=== PATIENT | female | born 1955 | race Caucasian/White ===

== ENCOUNTER 2020-04-12 12:32 | Inpatient (IN) | payer MEDICARE, MEDICAID ==
[~2020-04-12] VITALS: Ht 167.6 cm; Wt 94.0 kg
[2020-04-12] MEDS ORDERED: NS 1,000 ML IV SCH (13:00)
[2020-04-12] MEDS ORDERED: MORPHINE 2 MG/ML 1ML VIAL (J2270) IV PRN ×2 (13:00→21:55)
[2020-04-12] MEDS ORDERED: ONDANSETRON 4MG/2ML VIAL IV ONE (13:00)
[2020-04-12] MEDS ORDERED: ISOVUE-370 76% 100ML VIAL As Ordered ONE (13:28)
[2020-04-12 13:34] LABS: BASO % 0.3 % (0.0-1.0); HEMATOCRIT 48.3 % (36.0-47.0); HEMOGLOBIN 16.6 g/dl (12.0-15.5); LYMPH # 0.8 10^3/uL (1.5-5.0); LYMPH % 6.3 % (24.0-44.0); MEAN CORPUSCULAR HGB CONC 34.4 g/dl (32.0-36.5); MEAN CORPUSCULAR VOLUME 90.3 fl (80.0-96.0); MONO # 0.5 10^3/uL (0.0-0.8); MONO % 4.2 % (2.0-8.0); NEUTROPHILS # 10.6 10^3/uL (1.5-8.5); NEUTROPHILS % 88.8 % (36.0-66.0); PLATELET COUNT, AUTOMATED 231 10^3/uL (150-450); RED BLOOD COUNT 5.35 10^6/uL (4.00-5.40)
[2020-04-12 14:05] LABS: ALBUMIN 4.4 GM/DL (3.2-5.2); BILIRUBIN,DIRECT 0.3 MG/DL (0.0-0.2); BILIRUBIN,TOTAL 0.8 MG/DL (0.2-1.0)
--- NOTE | 2020-04-12 14:14 | REP ---
INDICATION: abd pain vomiting. COMPARISON: None TECHNIQUE: Axial contrast-enhanced images from the lung bases to the pubic symphysis using 100 cc Isovue 370 intravenous contrast material. . This CT examination was performed using the following dose reduction techniques: Automated exposure control, adjustment of mA and/or kv according to the patient's size, and the use of iterative reconstruction technique. FINDINGS: There is evidence for diffuse dilated fluid-filled small bowel throughout the abdomen and pelvis without collapsed loops to definitively identified obstruction. The colon also appears to be moderately dilated and there is suggestions for pneumatosis coli involving the cecum and ascending colon to the level of the hepatic flexure. A small amount of free fluid is identified within the pelvis. There is no evidence for free air. There is no evidence for portal venous gas. Diffuse colonic diverticulosis noted without acute diverticulitis. Mild hepatosteatosis without focal hepatic lesion. Spleen, pancreas, gallbladder, bilateral adrenal glands and kidneys are normal. Pelvis demonstrates heterogeneous myomatous changes to the uterus. Abdominal aorta and vasculature without aneurysm or dissection. No adenopathy. Skeletal structures demonstrate degenerative changes. Lung bases demonstrate right basilar atelectasis. IMPRESSION: 1. Findings involving the small and large bowel as described above concerning. Colitis including ischemic colitis involving the ascending colon cannot definitively be excluded. Consultation and close clinical observation is required. No definitive bowel obstruction is appreciated and there is no evidence for free air to suggest perforation. <Electronically signed by Hernando Seaman > 04/12/20 [id number]
[2020-04-12] MEDS ORDERED: METOCLOPRAMIDE INJ 10MG/2ML VIAL (J2765 PER 1) IV ONE (14:50)
[2020-04-12] MEDS ORDERED: COLA100C5 PO (15:21)
[2020-04-12] MEDS ORDERED: PIPERACILLIN/TAZOBACTAM SOD 3.375 GM in D5W MINI-BAG PLUS 50 ML IV ONE (16:05)
[2020-04-12] MEDS ORDERED: LIDOCAINE 1% SDV 30ML VIAL As Ordered ONE (16:32)
[2020-04-12] MEDS ORDERED: BUPIVACAINE HCL 0.25% 30ML VIAL As Ordered ONE (16:32)
[2020-04-12] MEDS ORDERED: BUPIVACAINE HCL 0.25% 10ML VIAL As Ordered ONE (16:32)
[2020-04-12] MEDS ORDERED: BUPIVACAINE LIPOSOME/PF 1.3% 20ML VIAL (13.3MG/ML)(EXPAREL)(C9290 PER1MG) As Ordered ONE (16:33)
[2020-04-12] MEDS ORDERED: dexameTHASONE 4 MG/ML 1ML VIAL (J1100 PER 1MG) As Ordered ONE ×2 (16:36→20:46)
[2020-04-12] MEDS ORDERED: ONDANSETRON 4MG/2ML VIAL As Ordered ONE ×2 (16:36→20:47)
[2020-04-12] MEDS ORDERED: ROCURONIUM BROMIDE 50 MG/5 ML VIAL As Ordered ONE ×2 (16:36→18:55)
[2020-04-12] MEDS ORDERED: ACETAMINOPHEN 1000MG 100ML IV BTL (OFIRMEV) (J0131 PER 10MG) As Ordered ONE (16:36)
[2020-04-12] MEDS ORDERED: HYDROmorphone HCL 2 MG/ML 1ML VIAL (J1170) As Ordered ONE (16:36)
[2020-04-12] MEDS ORDERED: SUGAMMADEX SODIUM 500 MG/5 ML VIAL (BRIDION) As Ordered ONE (16:36)
[2020-04-12] MEDS ORDERED: propofoL 200 MG/20 ML VIAL As Ordered ONE (16:36)
[2020-04-12] MEDS ORDERED: SUCCINYLCHOLINE 100 MG/5 ML SYRINGE (J0330) As Ordered ONE (16:36)
[2020-04-12] MEDS ORDERED: LIDOCAINE 2% 100MG/5ML SDV (FOR ANES.) As Ordered ONE (16:36)
[2020-04-12] MEDS ORDERED: fentaNYL 100 MCG/2 ML INJECTION (J3010) As Ordered ONE ×3 (16:37→21:50)
[2020-04-12] MEDS ORDERED: MIDAZOLAM INJ 2MG/2ML VIAL (J2250 PER 1MG) As Ordered ONE (16:37)
[2020-04-12] MEDS ORDERED: PHENYLEPHRINE 10MG/ML 1ML VIAL (J2370 PER 1) As Ordered ONE (16:57)
[2020-04-12] MEDS ORDERED: LABETALOL 100MG/20ML VIAL As Ordered ONE (19:05)
--- NOTE | 2020-04-12 20:12 | ECGEPIP ---
[facility] - ED Test Date: 2020-04-12 Pat Name: PRACHI LANE Department: Room: - Gender: Female Car Chaser: COLUMBA : 1955 Requested By: Vernell Fan Order Number: [id number] Reading MD: Vernell Fan Measurements Intervals Sharples Rate: 107 P: 33 CT: 146 QRS: -6 QRSD: 72 T: 45 QT: 340 QTc: 453 Interpretive Statements Sinus tachycardia with premature atrial complexes Minimal voltage criteria for LVH, may be normal variant ( R in aVL ) Cannot rule out Anterior infarct , age undetermined No prior Electronically Signed on 04-12-2020 20:12:57 EST by Vernell Fan
[2020-04-12] MEDS ORDERED: KETOROLAC 60MG 2ML VIAL As Ordered ONE (20:47)
[2020-04-12] MEDS ORDERED: HYDROMORPHONE HCL 0.5 MG/ 0.5 ML SYRINGE (J1170 PER 1) IV PRN (21:30)
[2020-04-12] MEDS ORDERED: LR 1,000 ML IV SCH (21:30)
[2020-04-12] MEDS ORDERED: KETOROLAC 30 MG/ML 1ML VIAL IV PRN (21:30)
[2020-04-12] MEDS ORDERED: oxyCODONE 5MG TAB PO PRN (21:30)
[2020-04-12] MEDS ORDERED: ONDANSETRON 4MG/2ML VIAL IV PRN (21:30)
[2020-04-12] MEDS: fentaNYL 100 MCG/2 ML INJECTION (J3010) IV PRN ×4 (21:53→22:38)
[2020-04-12 23:04] VITALS: BP 130/67
[2020-04-12] MEDS: LR 1,000 ML IV SCH (23:16)
[2020-04-12 23:37] VITALS: BP 129/79
[2020-04-12] MEDS: PIPERACILLIN/TAZOBACTAM SOD 3.375 GM in D5W MINI-BAG PLUS 50 ML IV SCH (23:55)
[2020-04-13] VITALS (7 sets, daily range): BP systolic 114–132; BP diastolic 71–77
[2020-04-13] MEDS: KETOROLAC 30 MG/ML 1ML VIAL IV SCH ×4 (03:04→22:02)
[2020-04-13] MEDS: LR 1,000 ML IV SCH ×3 (04:15→17:11)
[2020-04-13] MEDS: PIPERACILLIN/TAZOBACTAM SOD 3.375 GM in D5W MINI-BAG PLUS 50 ML IV SCH ×4 (05:33→22:02)
[2020-04-13 06:16] LABS: HEMATOCRIT 39.9 % (36.0-47.0); MEAN CORPUSCULAR HEMOGLOBIN 30.5 pg (27.0-33.0); MEAN CORPUSCULAR HGB CONC 33.6 g/dl (32.0-36.5); MEAN CORPUSCULAR VOLUME 90.9 fl (80.0-96.0); PLATELET COUNT, AUTOMATED 172 10^3/uL (150-450); RED BLOOD COUNT 4.39 10^6/uL (4.00-5.40); WHITE BLOOD COUNT 7.7 10^3/uL (4.0-10.0)
[2020-04-13 06:17] LABS: HEMOGLOBIN 13.4 g/dl (12.0-15.5)
[2020-04-13 06:46] LABS: ALBUMIN 2.8 GM/DL (3.2-5.2); ALT/SGPT 27 U/L (12-78); BLOOD UREA NITROGEN 24 MG/DL (7-18); CALCIUM LEVEL 8.5 MG/DL (8.8-10.2); CARBON DIOXIDE LEVEL 29 MEQ/L (21-32); CHLORIDE LEVEL 106 MEQ/L (98-107); CREATININE FOR GFR 0.87 MG/DL (0.55-1.30); GLOMERULAR FILTRATION RATE > 60.0 (>45); GLUCOSE, FASTING 170 MG/DL (70-100); POTASSIUM SERUM 4.1 MEQ/L (3.5-5.1); SODIUM LEVEL 141 MEQ/L (136-145); TOTAL PROTEIN 5.5 GM/DL (6.4-8.2)
[2020-04-13 07:28] LABS: ATYPICAL LYMPH 3 % (0-5); LYMPHOCYTES 5 % (16-44); MONOCYTES 9 % (0-5); NEUTROPHILS 57 % (28-66)
[2020-04-13 07:29] LABS: PLATELET ESTIMATE NORMAL (NORMAL)
--- NOTE | 2020-04-13 09:54 | HPEPDOC ---
General Surgery H&P Date of Admission Apr 12, 2020 Attending Physician: KEISHA MCCLELLAND MD History and Physical CHIEF COMPLAINT: abdominal distention, obstipation HISTORY OF PRESENT ILLNESS: Patient is a 64-year-old female with long-standing history of constipation who for the past week has not been able to have any bowel movements or have any flatus with increasing abdominal distention. She reports no bowel movement since about 4 days ago. She initially thought she was constipated so she's been taking stool softeners without any relief of the discomfort. She has increasing distention. She complains of right lower quadrant and right flank discomfort as well as nausea and couple episodes of vomiting. She is able to tolerate a small amount of liquids but nothing more than that. She denies any associated fevers or chills. She denies any prior episodes of similar symptoms. No prior colonoscopies. She denies any personal or family history for GI malignancy, colorectal malignancy, inflammatory bowel disease. She denies any sick contacts. With increasing abdominal distention she continues to be uncomfortable and that she went to the emergency room. ALLERGIES: Please see below. HOME MEDICATIONS: Please see below. PAST MEDICAL HISTORY: Patient denies any chronic medical problems but she has not seen a doctor in 30 years. She is not taking any chronic medications but she does take stool softeners occasionally with her constipation PAST SURGICAL HISTORY: 1. section 3. 2. Tonsillectomy. PERSONAL/SOCIAL HISTORY: Denies smoking, alcohol use, or recreational drug use. REVIEW OF SYSTEMS: GENERAL: Denies any abnormal weight loss or weight gain. Symptoms are about 5 days old. HEENT: Denies problems with vision or hearing denies changes in her voice. NECK: Denies any neck pain. CARDIOVASCULAR: Denies chest pain and palpitations. MUSCULOSKELETAL: Denies arthralgias, back pain and thrombophlebitis. SKIN: Denies rash. NEUROLOGIC: Denies headache, stroke and transient ischemic attack. PSYCHIATRIC: Denies anxiety and depression. ENDOCRINE: Denies thyroid disease. HEMATOLOGY/ONCOLOGY: Denies any bleeding or clotting disorder. HEART: Denies any chest pains, palpitations, paroxysmal dyspnea, orthopnea. PULMONARY: Denies chronic cough, dyspnea and wheezing. GASTROINTESTINAL: See HPI. No prior colonoscopy. GENITOURINARY: Denies dysuria, frequency, hematuria and nocturia. ENDOCRINE: Denies polydipsia, polyphagia, polyuria, heat or cold intolerance. INFECTIOUS: Denies any recent upper respiratory tract infection, UTI, need for use of antibiotics. NUTRITION: Reports poor appetite due to the abdominal distention. PHYSICAL EXAMINATION: VITAL SIGNS: Please see below. GENERAL APPEARANCE: Patient seen sitting up on the bed, mildly uncomfortable due to abdominal distention but in no acute distress. Awake, alert, oriented. HEENT: Normocephalic, atraumatic. [place] palpebral conjunctivae. Anicteric sclerae. Lips mildly dry. CHEST: No chest wall abnormalities. Normal respiratory motion/effort. NECK: Supple. No thyromegaly. No lymphadenopathies. LUNGS: Lung sounds are clear to auscultation bilaterally. No wheezing appreciated. HEART: No chest wall abnormalities. Heart rate and rhythm are regular with no murmurs. ABDOMEN: She has obese abdomen, moderately rounded, tensely distended and 90 tympanitic to percussion. Abdomen is quiet. No gross tenderness but patient reports discomfort with palpation especially in the right lower quadrant area. Palpation over right lower quadrant area was making her nauseous. She has a lower midline vertical incision as well as a Pfannenstiel incision. No umbilical or incisional hernia appreciated. No rebound tenderness or guarding. SKIN: Warm and dry. EXTREMITIES: No significant extremity edema. NEUROLOGICAL: She is awake, alert and oriented. ANCILLARIES: . LABORATORY DATA: Please see below. MICROBIOLOGY: Please see below. IMAGING: CT of the abdomen and pelvis with IV contrast shows diffusely dilated fluid- filled small bowel throughout the abdomen and pelvis without collapsed loops.: Is moderately dilated and suggestions for pneumatosis coli involving the cecum and ascending colon to the level of the hepatic flexure. No portal venous gas. Diffuse colonic diverticulosis without diverticulitis. IMPRESSION AND PLAN: Obstipation pneumatosis coli of the right colon/ischemic right colon Patient's abdomen is tensely distended and quiet with discomfort on palpation especially in the right side. No signs of peritonitis as of yet. This does not seem to have any severe systemic inflammatory response to this. She has some mild leukocytosis but otherwise no fevers, chills, tachycardia. I place a nasogastric tube with immediate drainage of brownish foul-smelling fluid. The appearance of pneumatosis on the right colon is very concerning to me and with her parents I think she does need to go to the operating room for diagnostic laparoscopy. Unclear as to what the etiology of the obstipation is. Does not look to be an obstructive process though certainly it is a possibility. He has had no prior colonoscopies. I discussed with her the options and includes careful observation watchful waiting with abdominal decompression versus diagnostic laparoscopy. I'm concerned that if she does show signs of peritonitis that she will do worse and may have murtaza perforation at that time. We also discussed the possibility of needing a temporary diversion or a colostomy this all depends on the clinical picture, how she is stooling during the surgery and how the bowels look. Certainly the chances of a colostomy/so with a right colectomy done with left-sided colon resection. Consent was obtained from patient. I also discussed findings with her daughter on the phone. We will proceed with diagnostic laparoscopy. If the robot is available would prefer to use the [employer] robot for possibility of performing intracorporeal anastomosis if she does need a right colectomy. Vital Signs Vital Signs Date Time Temp Pulse Resp B/P (MAP) Pulse Ox O2 Delivery O2 Flow Rate FiO2 04/13/20 06:30 3.0 04/13/20 05:58 97.6 87 20 125/76 (92) 93 Nasal Cannula I&Os I&O- Last 24 Hours up to 6 AM 04/13/20 06:00 Intake Total 3850 ml Output Total 835 ml Balance 3015 ml Laboratory Data Labs 24H Laboratory Tests 2 04/12/20 13:08: Immature Granulocyte % (Auto) 0.4, Neutrophils (%) (Auto) 88.8H, Lymphocytes (%) (Auto) 6.3L, Monocytes (%) (Auto) 4.2, Eosinophils (%) (Auto) 0.0, Basophils (%) (Auto) 0.3, Neutrophils # (Auto) 10.6H, Lymphocytes # (Auto) 0.8L, Monocytes # (Auto) 0.5, Eosinophils # (Auto) 0.0, Basophils # (Auto) 0.0, Nucleated Red Blood Cells % (auto) 0.0, Total Bilirubin 0.8, Direct Bilirubin 0.3H, Aspartate Amino Transf (AST/SGOT) 17, Alanine Aminotransferase (ALT/SGPT) 21, Alkaline Phosphatase 88, Total Protein 8.0, Albumin 4.4, Albumin/Globulin Ratio 1.2, Lipase 113 04/12/20 13:20: POC Glucose (Misc Panel) 142H, POC Sodium (Misc Panel) 138, POC Potassium (Misc Panel) 4.1, POC Chloride (Misc Panel) 100, POC Total CO2 (Misc Panel) 27.0, POC Blood Urea Nitrogen (Misc Panel 27H, POC Ionized Calcium (Misc Panel) 4.9, POC Creatinine (Misc Panel) 1.1, POC Hematocrit (Misc Panel) 49.0 04/12/20 14:25: Lactic Acid Level 1.7 04/12/20 15:49: Coronavirus (COVID-19)(PCR) NEGATIVE 04/13/20 05:48: Neutrophils (%) (Auto) , Nucleated Red Blood Cells % (auto) 0.0, Neutrophils 57, Band Neutrophils 26H, Lymphocytes (Manual) 5L, Monocytes (Manual) 9H, Atypical Lymphocytes 3, Platelet Estimate NORMAL, Anion Gap 6L, Glomerular Filtration Rate > 60.0, Calcium Level 8.5L, Total Bilirubin 1.0, Aspartate Amino Transf (AST/SGOT) 22, Alanine Aminotransferase (ALT/SGPT) 27, Alkaline Phosphatase 56, Total Protein 5.5#L, Albumin 2.8#L, Albumin/Globulin Ratio 1.0L CBC/BMP Laboratory Tests 04/12/20 13:08 04/13/20 05:48 Home Medications Scheduled Amoxicillin/Potassium Clav (Augmentin 875-125 Tablet) 1 Each Tablet, 1 TAB PO BI D Diphenoxylate HCl/Atropine (Diphenoxylate-Atrop 2.5-0.025) 1 Each Tablet, 1 EA PO BID Metronidazole (Metronidazole) 500 Mg Tablet, 500 MG PO TID Scheduled PRN Oxycodone/Acetaminophen (Oxycodone-Acetaminophen 5-325) 1 Each Tablet, 1 TAB PO TIDP PRN for MILD/MODERATE PAIN (PS 1-7) Allergies Coded Allergies: ENVIROMENTAL (Verified Allergy, Unknown, 04/12/20) A-FIB/CHADSVASC A-FIB History Current/History of A-Fib/PAF?: No Current PO Anticoag Therapy: KEISHA Canseco MD Apr 13, 2020 09:54
--- NOTE | 2020-04-13 09:56 | ROOPDOC ---
[facility] Report Of Operation Report of Operation DATE OF PROCEDURE: 04/12/20 PREPROCEDURE DIAGNOSES: Ischemic right colon. POSTPROCEDURE DIAGNOSES: Colonic distention, partial wall thickness perforation, no gross perforation, right colon ischemia. PROCEDURE: Diagnostic Laparoscopy converted to Open laparotomy, right colectomy and end ileostomy. SURGEON: Chalino Olson MD SNUFF BOX FINISHER: ANESTHESIA: General Endotracheal anesthesia. ESTIMATED BLOOD LOSS: Approximately 100 mL. COMPLICATIONS: none, extubated. REMARKS: Patient is a 64-year-old female presenting with about 5 day history of obstipation, markedly abdominal distention and suspicion for possible ischemic right colon on CT with presence of pneumatosis coli on the cecum and ascending colon. No gross perforation. Patient is being brought to the operating room for diagnostic laparoscopy, most likely needing bowel resection. PROCEDURE NOTE: Markedly distended and mildly ischemic appearing right colon up to the proximal transverse colon but no real transition point, no gross evidence of mechanical type of obstruction. The rest of the colon also looks distended but healthier appearing. No palpable masses. No hard stools. The small bowel was also distended but less in caliber. Small amount of serous ascites is noted. DESCRIPTION OF PROCEDURE: Patient was given a dose of Zosyn 3.375 g IV in the emergency room. She was likewise given a liter of normal saline as well as and started on brisk IV fluid hydration. Once the operating room is available, she was brought to the operating room, placed supine on the table. TEDs and bilateral sequential compre ssion devices were placed on both lower extremities were DVT prophylaxis. Gen. endotracheal anesthesia started. Her pressure dropped a little and she was placed on a small amount of Senthil-Synephrine for support. A Alves catheter was placed showing moderately concentrated dark-colored urine. Her abdomen was then widely prepped and draped in the usual sterile fashion.We paused for a surgical timeout using both pre-incision safety checklist to verify correct patient, procedure site and additional clinical information prior to beginning the procedure I marked possible colostomy/ileostomy placement on both sides at the paramedian area. I entered the abdomen through the left upper quadrant area. A Veress needle was inserted with a controlled fashion. CO2 insufflation was then started to pressure 15 mmHg. Initial pressures were already high due to the abdominal distention so insufflating to 15 mmHg did not accommodate a lot of pneumoperitoneum. Under direct vision a 5 mm optical port was placed under direct vision of a laparoscope. The area underneath the insertion site was inspected for injuryfound. She was placed on the 15 Trendelenburg position tilted towards the left side. On initial surveillance of the abdomen, markedly distended loops of small bowel and especially the right side of the colon is appreciated with the cecum and ascending colon markedly dilated and mildly ischemic in appearance though not grossly full thickness ischemic or purplish in appearance. There seems to be a transition where the collar starts to pink up a little past the hepatic flexure below the colon still looks distended at this area though less so. The small bow el also appears distended but otherwise appears healthy in appearance. There is a small amount of serous ascites on top of the liver. No evidence for gross perforation. No clearly ischemic portions of the colon and small bowel that I could see. I used ICG and confirms a sluggish opacification of the right colon as compared to the transverse colon and small bowel. I established my ports mainly in the left side. Therefore 8 mm robotic trochars were placed in a slight oblique direction ending up at the just above the suprapubic area. A 12 mm port was placed 10 cm below my initial port of entry. The initial 5 mm port was exchanged for an 8 mm ports under direct vision. A total of 4 ports were placed. The da [employer] of what was then positioned in place over the patient's right side and the trocar stuck to the robot. Instruments were placed and guided to the midline. I then unscrubbed and to control of the robot camera and instruments as the surgeon's console. To gain some space on a placed a pursestring at the medial tenia coli over the top portion of the cecum using a 3-0 silk. The colotomy was then created and I inserted a robotic suction to suction off the contents of the right colon. Brownish nonbloody stool was suctioned off. A total of 1200 mL's of stool was suctioned off. Even with this was only partial decompression of the colon. The colotomy was then cinched close with the pursestring suture. I then performed lateral dissection of the colon to free this up from its lateral attachments to the abdominal wall. There was a lot of difficulty visualizing the hepatic flexure due to the depth where the colon traverses as well as the distention of the small bowel and colon. The omental attachments at the mid transverse colon was freed up the gastrocolic ligament was divided using the synchronous seal device. I was trying to get to the hepatic flexure and bring it down but continued to have difficulty visualizing the course of the colon as it dives down into the right gutter. I've also difficulty visualizing the medial portion of the mesentery due to the distention of the small bowel. I tried to go back between the lateral dissection of the cecum and ascending colon as well as the super mesocolic dissection from the middle of the transverse colon towards the hepatic flexure to try to further free this up and left colon anteriorly but after a couple hours without any good improvement in visualization, I decided that I need to proceed in an open fashion. The [employer] robot tower was undocked and I scrubbed back in. All ports were removed. A vertical midline incision was created midway between the umbilicus and symphysis pubis and up towards midway between the umbilicus and xiphisternum. She has a very thick pannus especially in the lower abdomen. The incision was deepened through to the subcutaneous pannus and the midline of the anterior fascia was located. The abdomen was entered and the fascial incision was enlarged to the length of the skin and subcutaneous tissue incision. This was partially enlarged inferiorly and superiorly for more adequate visualization. The [employer] self-retaining retractor was set up I continued the lateral dissection of the cecum and ascending colon mostly with finger dissection which easily broke apart the flimsy attachments to the retroperito neum. This allowed me to further visualize the hepatic flexure and take it down from its attachments to the liver/abdominal wall/retroperitoneum. The duodenum was identified and dissected off the hepatic flexure. I have already noticed an area of demarcation where there was some slight darkening of the colon though this is not fully or push or ischemic. This seems to be probably at the right this colic artery distribution with the distribution of middle colic arteries allowing for good perfusion of the area. I chose my distal site of resection to healthy portion of the transverse colon. The mesenteric window was created with a LigaSure device and the 75 mm stapler with a blue load was used to transect the colon. The retroperitoneal attachments of the mesentery was freed up and the mesentery was divided with the LigaSure device making sure the duodenum is of the mesentery of the right colon. I then proceeded freeing up the left over retroperitoneal attachments of the ascending colon. I then came down towards the terminal ileum chose an area of the small bowel that appears healthy and likewise created a mesenteric window and divided this with the same 75 mm stapler with a blue load. The feeding vessels to the small bowel was divided with LigaSure and met my superior dissection following the course of the ileocolic artery. The ileocolic vessels were burned both proximally and distally to divide the ileocolic vessels with the LigaSure device. Leftover attachments of the right colon was easily freed up and the right colon was passed off as a specimen. I then examined the rest of the abdominal cavity. The stomach was inspected. This was dilated but otherwise healthy in appearance. The nasogastric tube was positioned to the mid body. Small bowel was run from the ligament of Treitz to the distal ileum. There were no obstructive points. The mesentery is mildly swollen from the ongoing process. The remnants of the transverse colon was visualized as well as the course of the splenic flexure and left colon and rectum and all appears healthy, pink in appearance though the whole of the colon appears twice the size was normal and is fluid-filled. I did not feel any masses. The uterus and ovaries were consistent with her age and no masses were seen. The liver was palpated and a smooth, fatty replaced. Gallbladder is moderately distended, mildly thick-walled. The 2 ends of the small bowel and transverse colon was aligned. There was more than 6 times the difference of the lumen of the small bowel to the transverse colon. Patient also has a small amount of Senthil-Synephrine at this time. It is also not obvious what was the cause of the obstipation, ischemic right colon, thus I decided to forego with anastomosis at this time. I chose the placement of the he ileostomy on the patient's right side. A small disc of skin and subcutaneous tissue was removed down to the anterior fascia. A vertical incision was created, the rectus muscle split to expose the posterior sheath and the posterior sheath was likewise opened up vertically and dilated to accommodate 2 fingers. The stump of the small bowel/ileum was threaded through the ileostomy site and held with a [place]. There was some mild tension due to the thickness of the mesentery. I partially enlarged the ileostomy fascial opening to deal with the tension and then pullout more of the ileostomy. The abdomen was irrigated with about 3 L of warm saline. I threaded a 19 Ranjan drain through the 12 mm port site and left this in the pelvis. The bowels were placed in their anatomic position and the omentum draped on top of the small bowel. The peritoneum and posterior sheath was closed with a running suture of #1 Vicryl. The anterior sheath was closed recreating the linea alba with a double looped #1 PDS. The subcutaneous tissue was irrigated. The skin loosely closed with shayy and Telfa meena placed in-between the shayy. The incision was then covered with a dry towel Then worked on maturing the ileostomy in a Shari fashion. The ileostomy where the mesentery is located is partially flat to accommodate the bulk of the mesentery. Otherwise the ileostomy mucosa appears pink and healthy. The ileostomy appliance was then trimmed to size and placed. Bulky gauze dressings placed on top of the incision. The drain was secured to the skin with 2-0 silk. Towards the end of the case, patient was awakened. We were able to wean off the Senthil-Synephrine. She was promptly awakened, extubated and brought to recovery room in stable condition. CHALINO OLSON MD Apr 13, 2020 09:56
--- NOTE | 2020-04-13 09:57 | IPNPDOC ---
Text Note Date of Service The patient was seen on 04/13/20. NOTE Patient was brought to the operating room for ischemic right colon last night. She has been stable postoperatively but urine output is on the low side. Urine appears still concentrated. She reports she is much comfortable today. No ileostomy output yet Vital signs stable, non-tachycardic Urine output 175 mL's overnight NG tube 1.5 mL TADEO drain 30 mL Examination patient's laying flat in bed looks a lot more comfortable she was last night Awake alert and oriented Skin is warm and dry Lungs are clear to auscultation bilaterally no wheezing Regular heart rate and rhythm Abdomen is round still looks moderately distended with lot softer than it was on presentation. Her dressings are clean dry and intact. Her TADEO drain is slight pink serosanguineous. Her ileostomy is is moderately swollen, purplish, no output yet POD1 Exploratory laparotomy, Right Colectomy, End Ileostomy for ischemic right colon Still on the dry side. We'll continue IV fluids at 150 mL an hour. She is instructed to get out of bed to chair and ambulate today when stable. We will keep the Alves catheter in today hopefully this continue with by tomorrow. Continue on IV antibiotics. Keep the nasogastric tube to suction. Await function of the ostomy. Still remains unclear to me what the precipitating factor is for the ischemic right colon. She tells me that she has been perennially constipated and has been taking stool softeners there were since early adulthood. She usually just posterior bowels once every 3 days with hard bowel movements. No prior colonoscopies. No bleeding with bowel movements or nor prior episodes of bowel obstructions. We'll eventually need to do a colonoscopy at some point. Ostomy teaching DVT prophylaxis with Lovenox. VS,Fishbone, I+O VS, Fishbone, I+O Laboratory Tests 04/12/20 13:08 04/13/20 05:48 Vital Signs Date Time Temp Pulse Resp B/P (MAP) Pulse Ox O2 Delivery O2 Flow Rate FiO2 04/13/20 06:30 3.0 04/13/20 05:58 97.6 87 20 125/76 (92) 93 Nasal Cannula I&O- Last 24 Hours up to 6 AM 04/13/20 06:00 Intake Total 3850 ml Output Total 835 ml Balance 3015 ml KEISHA MCCLELLAND MD Apr 13, 2020 09:57
[2020-04-13] MEDS: ENOXAPARIN 40MG/0.4ML SYRINGE (J1650 PER 10MG) SC SCH (10:17)
[2020-04-13] MEDS: PANTOPRAZOLE 40MG VIAL (C9113 PER 1) IV SCH (10:19)
[2020-04-14] MEDS: LR 1,000 ML IV SCH ×2 (01:00→07:41)
[2020-04-14 02:00] VITALS: BP 126/74
[2020-04-14] MEDS: KETOROLAC 30 MG/ML 1ML VIAL IV SCH ×4 (04:47→20:06)
[2020-04-14] MEDS: PIPERACILLIN/TAZOBACTAM SOD 3.375 GM in D5W MINI-BAG PLUS 50 ML IV SCH ×4 (04:48→23:08)
[2020-04-14 06:00] VITALS: BP 148/86
[2020-04-14 06:23] LABS: BASO % 0.4 % (0.0-1.0); EOS % 0.3 % (0.0-3.0); HEMATOCRIT 39.4 % (36.0-47.0); HEMOGLOBIN 13.2 g/dl (12.0-15.5); LYMPH # 0.7 10^3/uL (1.5-5.0); LYMPH % 9.6 % (24.0-44.0); MEAN CORPUSCULAR HGB CONC 33.5 g/dl (32.0-36.5); MEAN CORPUSCULAR VOLUME 92.5 fl (80.0-96.0); MONO # 0.6 10^3/uL (0.0-0.8); MONO % 8.7 % (2.0-8.0); NEUTROPHILS # 5.5 10^3/uL (1.5-8.5); NEUTROPHILS % 80.7 % (36.0-66.0); PLATELET COUNT, AUTOMATED 165 10^3/uL (150-450); RED BLOOD COUNT 4.26 10^6/uL (4.00-5.40); WHITE BLOOD COUNT 6.8 10^3/uL (4.0-10.0)
[2020-04-14 06:47] LABS: ALBUMIN 2.5 GM/DL (3.2-5.2); ALT/SGPT 23 U/L (12-78); BLOOD UREA NITROGEN 30 MG/DL (7-18); CALCIUM LEVEL 8.3 MG/DL (8.8-10.2); CARBON DIOXIDE LEVEL 31 MEQ/L (21-32); CHLORIDE LEVEL 105 MEQ/L (98-107); CREATININE FOR GFR 0.75 MG/DL (0.55-1.30); GLOMERULAR FILTRATION RATE > 60.0 (>45); GLUCOSE, FASTING 126 MG/DL (70-100); SODIUM LEVEL 141 MEQ/L (136-145); TOTAL PROTEIN 5.6 GM/DL (6.4-8.2)
[2020-04-14 10:00] VITALS: BP 134/93
[2020-04-14] MEDS: ENOXAPARIN 40MG/0.4ML SYRINGE (J1650 PER 10MG) SC SCH (10:08)
[2020-04-14] MEDS: PANTOPRAZOLE 40MG VIAL (C9113 PER 1) IV SCH (10:08)
--- NOTE | 2020-04-14 12:32 | IPNPDOC ---
Text Note Date of Service The patient was seen on 04/14/20. NOTE Patient continues to do much better. She tells me she has gotten out of bed, a mbulated. Her nasogastric tube was putting out that much. Her ileostomy is started to put out some output, thin brownish fluid, not bilious yet. He she also reports that she is passing some flatus intermittently. Comfortable. Vital signs stable MAXIMUM TEMPERATURE 98.1 pulse rate in the 90s. Blood pressure 134/93. Pulse oximetry reading 90% 3 L nasal cannula On examination She was asleep when I entered her room wakes up easily looks comfortable Nasal cannula with about 93% on regular breathing, 97% on deep breathing Lungs clear to auscultation bilaterally Regular heart rate and rhythm Abdomen remains rounded still moderately distended but a lot less so than on presentation. Postoperative dressings are clean dry and intact. Her TADEO drain is light pink serosanguineous. Her ileostomy slightly swollen with thin brownish output. Minimally uncomfortable in the palpation no definite area of tenderness No significant extremity edema Urine still somewhat concentrated Labs reviewed Impression and plan Postop day 2 following right colectomy for ischemic right colon, end ileostomy She continues to improve clinically. We will discontinue her nasogastric tube Aman has not put out Much and her ileostomy is starting to work. We will also discontinue the Alves catheter today. She is encouraged to continue to get up and walk. We'll get her an incentive spirometer to help her with deep breathing exercises. She has Lovenox for DVT prophylaxis. She is continued on Zosyn 3.375 g IV every 6 hours. I will switch to IV fluid to maintenance IV. I will allow her some clear liquids. VS,Fishbone, I+O VS, Fishbone, I+O Laboratory Tests 04/14/20 06:01 Vital Signs Date Time Temp Pulse Resp B/P (MAP) Pulse Ox O2 Delivery O2 Flow Rate FiO2 04/14/20 10:00 98.1 95 18 134/93 (107) 90 Nasal Cannula 3.0 I&O- Last 24 Hours up to 6 AM 04/14/20 06:00 Intake Total 0 ml Output Total 1190 ml Balance -1190 ml KEISHA MCCLELLAND MD Apr 14, 2020 12:32
[2020-04-14] MEDS: KCL 20MEQ IN D5/0.45NS 1000ML 1,000 ML IV SCH ×2 (12:38→20:21)
[2020-04-14 14:00] VITALS: BP 126/86
[2020-04-14 18:00] VITALS: BP 125/84
[2020-04-14] MEDS: ONDANSETRON 4MG/2ML VIAL IV PRN (20:05)
[2020-04-14 22:00] VITALS: BP 135/85
[2020-04-15] MEDS: ONDANSETRON 4MG/2ML VIAL IV PRN ×2 (01:43→10:18)
[2020-04-15] MEDS: KETOROLAC 30 MG/ML 1ML VIAL IV SCH ×4 (01:43→20:57)
[2020-04-15 02:00] VITALS: BP 143/92
[2020-04-15] MEDS: PIPERACILLIN/TAZOBACTAM SOD 3.375 GM in D5W MINI-BAG PLUS 50 ML IV SCH ×3 (04:28→18:02)
[2020-04-15 06:00] VITALS: BP 135/89
[2020-04-15 06:26] LABS: HEMATOCRIT 40.3 % (36.0-47.0); HEMOGLOBIN 13.5 g/dl (12.0-15.5); MEAN CORPUSCULAR HEMOGLOBIN 30.7 pg (27.0-33.0); MEAN CORPUSCULAR HGB CONC 33.5 g/dl (32.0-36.5); MEAN CORPUSCULAR VOLUME 91.6 fl (80.0-96.0); PLATELET COUNT, AUTOMATED 174 10^3/uL (150-450); WHITE BLOOD COUNT 4.1 10^3/uL (4.0-10.0)
[2020-04-15 06:47] LABS: ATYPICAL LYMPH 3 % (0-5); LYMPHOCYTES 8 % (16-44); MONOCYTES 1 % (0-5); NEUTROPHILS 83 % (28-66); PLATELET ESTIMATE NORMAL (NORMAL)
[2020-04-15 06:58] LABS: ALBUMIN 2.5 GM/DL (3.2-5.2); BILIRUBIN,TOTAL 0.7 MG/DL (0.2-1.0); CALCIUM LEVEL 8.6 MG/DL (8.8-10.2); CREATININE FOR GFR 0.99 MG/DL (0.55-1.30); GLOMERULAR FILTRATION RATE 59.9 (>45); POTASSIUM SERUM 4.1 MEQ/L (3.5-5.1); TOTAL PROTEIN 5.7 GM/DL (6.4-8.2)
[2020-04-15] MEDS: PANTOPRAZOLE 40MG VIAL (C9113 PER 1) IV SCH (08:04)
[2020-04-15] MEDS: ENOXAPARIN 40MG/0.4ML SYRINGE (J1650 PER 10MG) SC SCH (08:05)
[2020-04-15 10:00] VITALS: BP 135/89
[2020-04-15] MEDS ORDERED: PROMETHAZINE INJ 25 MG/ML VIAL (J2550) IV ONE (12:00)
--- NOTE | 2020-04-15 12:13 | IPNPDOC ---
Text Note Date of Service The patient was seen on 04/15/20. NOTE General Surgery Dr Mcclelland. The patient is a 64-year-old female POD 3 right colectomy for ischemic right colon, and ileostomy as per Dr. Mcclelland. The patient states she has been comfortable. She has gotten out of bed and ambulated around the room, not in the halls yet. Tube was discontinued. She has had some thin brownish fluid in her ileostomy bag. Reports she is passing some flatus. States she is tolerating clear liquids. Afebrile. Heart rate 94, respiratory rate 18, blood pressure 135/89, 92% room air. General. Awake and alert, resting in bed comfortably. No acute distress. MMM Lungs are clear to auscultation S1-S2 regular rate and rhythm Abdomen. Surgical sites clean, dry and intact. Small amount of drainage in TADEO, serosanguineous. Soft and nontender, nondistended. Ileostomy bag with small amount thin brownish fluid, stoma is pink. Extremities well-perfused, no edema. 2440/2375, +65 TADEO drain 400 mL WBC 4.1, hemoglobin 13.5, platelets 174. Total protein 5.7, albumin 2.5 Assessment/plan POD 3 right colectomy for ischemic right colon, and ileostomy. Patient is reviewed and examined as per Dr. Mcclelland this morning. The patient is tolerating clear liquids. Small amount of brownish fluid in ileostomy bag. IV Zosyn. IVF 100cc/hr Continue to encourage ambulation and incentive spirometer. She remains on Lovenox for DVT prophylaxis. Begin ostomy teaching with nursing and planning for supplies for discharge. Continue to monitor. VS,Fishbone, I+O VS, Fishbone, I+O Laboratory Tests 04/15/20 05:46 Vital Signs Date Time Temp Pulse Resp B/P (MAP) Pulse Ox O2 Delivery O2 Flow Rate FiO2 04/15/20 10:00 98.2 94 18 135/89 (104) 92 Room Air 04/14/20 22:00 I&O- Last 24 Hours up to 6 AM 04/15/20 06:00 Intake Total 3590 ml Output Total 2245 ml Balance 1345 ml Attending Note Attending Note Patient continues to do well and she is having function from her ileostomy to this still does not look as a typical sulcus and more of the small bowel getting decompressed with the ileostomy passing dark brownish stool-like material. She is also reporting flatus from the rectum/anus. She's tolerating clear liquids. We will continue antibiotics to cover for at least 7 days. He will start ostomy teaching and have her work with the nurses on how to take the ostomy. She is already starting to ambulate. She remains on Lovenox for DVT prophylaxis. Elizabeth Schneider Apr 15, 2020 12:13 KEISHA MCCLELLAND MD Apr 22, 2020 12:57
[2020-04-15] MEDS ORDERED: METOCLOPRAMIDE INJ 10MG/2ML VIAL (J2765 PER 1) IV ONE (13:35)
[2020-04-15 14:00] VITALS: BP 134/90
[2020-04-15] MEDS: KCL 20MEQ IN D5/0.45NS 1000ML 1,000 ML IV SCH (15:35)
--- NOTE | 2020-04-15 18:36 | REP ---
INDICATION: CHECK NG TUBE PLACEMENT COMPARISON: None. TECHNIQUE: Supine view of the abdomen and pelvis. FINDINGS: Limited evaluation of the mid chest through upper abdomen demonstrates a nasogastric tube just beyond the left hemidiaphragm and consideration should be given for advanced mint to secure the position. Lung bases are clear. Evidence for postsurgical changes involving the abdomen including surgical clips and drainage catheter. IMPRESSION: 1. Nasogastric tube just below the left hemidiaphragm warrants advancement to secure position. <Electronically signed by Hernando Seaman > 04/15/20 [id number]
[2020-04-15 22:00] VITALS: BP 130/87
[2020-04-16] MEDS: PIPERACILLIN/TAZOBACTAM SOD 3.375 GM in D5W MINI-BAG PLUS 50 ML IV SCH ×5 (01:59→23:33)
[2020-04-16] MEDS: KCL 20MEQ IN D5/0.45NS 1000ML 1,000 ML IV SCH ×4 (02:00→23:34)
[2020-04-16] MEDS: ONDANSETRON 4MG/2ML VIAL IV PRN ×2 (02:26→20:37)
[2020-04-16] MEDS: KETOROLAC 30 MG/ML 1ML VIAL IV SCH ×4 (03:32→20:37)
[2020-04-16 05:47] LABS: HEMOGLOBIN 12.5 g/dl (12.0-15.5); MEAN CORPUSCULAR HEMOGLOBIN 30.1 pg (27.0-33.0); MEAN CORPUSCULAR HGB CONC 32.9 g/dl (32.0-36.5); MEAN CORPUSCULAR VOLUME 91.6 fl (80.0-96.0); PLATELET COUNT, AUTOMATED 221 10^3/uL (150-450); RED BLOOD COUNT 4.15 10^6/uL (4.00-5.40); WHITE BLOOD COUNT 3.8 10^3/uL (4.0-10.0)
[2020-04-16 06:00] VITALS: BP 109/77
[2020-04-16 06:19] LABS: ATYPICAL LYMPH 1 % (0-5); EOSINOPHILS 9 % (0-3); LYMPHOCYTES 26 % (16-44); MONOCYTES 4 % (0-5); NEUTROPHILS 60 % (28-66)
[2020-04-16 06:20] LABS: PLATELET ESTIMATE NORMAL (NORMAL)
[2020-04-16 06:22] LABS: ALBUMIN 2.4 GM/DL (3.2-5.2); BILIRUBIN,TOTAL 0.9 MG/DL (0.2-1.0); CALCIUM LEVEL 8.3 MG/DL (8.8-10.2); CREATININE FOR GFR 1.21 MG/DL (0.55-1.30); GLOMERULAR FILTRATION RATE 47.5 (>45); POTASSIUM SERUM 3.9 MEQ/L (3.5-5.1); TOTAL PROTEIN 5.6 GM/DL (6.4-8.2)
[2020-04-16 08:39] VITALS: BP 115/65
[2020-04-16] MEDS: PANTOPRAZOLE 40MG VIAL (C9113 PER 1) IV SCH (09:01)
[2020-04-16] MEDS: ENOXAPARIN 40MG/0.4ML SYRINGE (J1650 PER 10MG) SC SCH (09:01)
--- NOTE | 2020-04-16 12:16 | IPNPDOC ---
Text Note Date of Service The patient was seen on 04/16/20. NOTE General Surgery Dr Olson. The patient is a 64-year-old female POD 3 right colectomy for ischemic right colon, and ileostomy as per Dr. Olson. The patient admits that yesterday she did not really accurately report how she was feeling. She had stated that she was tolerating clear liquids but admits that she had been feeling nauseated throughout the day yesterday with increasing abdominal fullness and then had episode of emesis yesterday afternoon. NG tube was reinserted. Patient is NPO currently and states she is feeling better. She reports no further nausea or vomiting. Abdominal distention is improved this morning. Afebrile. VSS General. Awake and alert, sitting comfortably on the side of the bed. No acute distress. NG tube in place Lungs are clear to auscultation S1-S2 regular rate and rhythm Abdomen. Surgical sites clean, dry and intact. Small amount of drainage in TADEO, serosanguineous. Abdomen is soft and nontender, nondistended. Ileostomy bag with small amount thin brownish fluid, has not had much air in the bag, stoma is pink. Extremities well-perfused, no edema. 1330/2385, -1055 TADEO drain 215 mL NG, none recorded 3/8 WBC 3.8, hemoglobin 12.5, platelets 221. Assessment/plan POD 3 right colectomy for ischemic right colon, and ileostomy. Patient is reviewed and examined as per Dr. Olson this morning. Reassured and encouraged the patient accurately report how she is feeling. Continue with NG tube and NPO for today. Small amount of brownish fluid in ileostomy bag, still not noting much air in the bag. IV Zosyn. IVF 100cc/hr Continue to encourage ambulation and incentive spirometer. She remains on Lovenox for DVT prophylaxis. Begin ostomy teaching with nursing and planning for supplies for discharge. Continue to monitor. VS,Chinbone, I+O VS, Chinbone, I+O Laboratory Tests 04/16/20 05:14 Vital Signs Date Time Temp Pulse Resp B/P (MAP) Pulse Ox O2 Delivery O2 Flow Rate FiO2 04/16/20 10:27 2.0 04/16/20 08:39 95.7 90 17 115/65 (82) 95 Room Air I&O- Last 24 Hours up to 6 AM 04/16/20 06:00 Intake Total 180 ml Output Total 2365 ml Balance -2185 ml Elizabeth Schneider Apr 16, 2020 12:16
[2020-04-16 14:00] VITALS: BP 115/76
[2020-04-16 22:00] VITALS: BP 117/76
[2020-04-17] MEDS: KETOROLAC 30 MG/ML 1ML VIAL IV SCH ×4 (03:07→20:29)
[2020-04-17] MEDS: ONDANSETRON 4MG/2ML VIAL IV PRN (03:07)
[2020-04-17 06:00] VITALS: BP 121/75
[2020-04-17] MEDS: PIPERACILLIN/TAZOBACTAM SOD 3.375 GM in D5W MINI-BAG PLUS 50 ML IV SCH ×4 (06:09→22:53)
[2020-04-17 06:33] LABS: BASO # 0.1 10^3/uL (0.0-0.2); BASO % 1.3 % (0.0-1.0); EOS # 0.2 10^3/uL (0.0-0.5); EOS % 3.6 % (0.0-3.0); HEMATOCRIT 36.5 % (36.0-47.0); HEMOGLOBIN 12.1 g/dl (12.0-15.5); LYMPH # 1.1 10^3/uL (1.5-5.0); LYMPH % 23.8 % (24.0-44.0); MEAN CORPUSCULAR HEMOGLOBIN 30.4 pg (27.0-33.0); MEAN CORPUSCULAR HGB CONC 33.2 g/dl (32.0-36.5); MEAN CORPUSCULAR VOLUME 91.7 fl (80.0-96.0); MONO # 0.7 10^3/uL (0.0-0.8); MONO % 15.1 % (2.0-8.0); NEUTROPHILS # 2.6 10^3/uL (1.5-8.5); NEUTROPHILS % 55.3 % (36.0-66.0); PLATELET COUNT, AUTOMATED 209 10^3/uL (150-450); RED BLOOD COUNT 3.98 10^6/uL (4.00-5.40); WHITE BLOOD COUNT 4.7 10^3/uL (4.0-10.0)
[2020-04-17 07:19] LABS: ALBUMIN 2.3 GM/DL (3.2-5.2); BILIRUBIN,TOTAL 0.3 MG/DL (0.2-1.0); CALCIUM LEVEL 8.4 MG/DL (8.8-10.2); CREATININE FOR GFR 1.09 MG/DL (0.55-1.30); GLOMERULAR FILTRATION RATE 53.6 (>45); POTASSIUM SERUM 3.9 MEQ/L (3.5-5.1); TOTAL PROTEIN 5.5 GM/DL (6.4-8.2)
[2020-04-17 07:48] LABS: C REACTIVE PROTEIN QUANTITATIV 6.9 MG/DL (0.00-0.30)
--- NOTE | 2020-04-17 08:37 | REP ---
INDICATION: postop ileus, bowel obstruction ffup COMPARISON: None. TECHNIQUE: Upright view of the chest with supine and upright views of the abdomen and pelvis. FINDINGS: Frontal upright view of the chest includes nasogastric tube extending just below the left hemidiaphragm. Minimal right basilar atelectasis and small right pleural reaction cannot be excluded. No free air below diaphragm to suspect pneumoperitoneum. Supine upright views of the abdomen demonstrate distended air-filled small bowel with fluid levels suggesting ileus versus obstruction. A drainage catheter and postoperative changes are noted within the abdomen including right-sided ostomy. Skeletal structures are intact. IMPRESSION: 1. Postoperative ileus versus small-bowel obstruction cannot be differentiated based on current examination. Close clinical observation is recommended. <Electronically signed by Hernando Seaman > 04/17/20 0865
[2020-04-17] MEDS: ENOXAPARIN 40MG/0.4ML SYRINGE (J1650 PER 10MG) SC SCH (09:31)
[2020-04-17] MEDS: PANTOPRAZOLE 40MG VIAL (C9113 PER 1) IV SCH (09:32)
[2020-04-17] MEDS: KCL 20MEQ IN D5/0.45NS 1000ML 1,000 ML IV SCH ×2 (09:32→20:23)
--- NOTE | 2020-04-17 13:29 | IPNPDOC ---
Text Note Date of Service The patient was seen on 04/17/20. NOTE General Surgery Dr Olson. The patient is a 64-year-old female POD 4 right colectomy for ischemic right colon, and ileostomy as per Dr. Olson. The patient states she is feeling better. No nausea or vomiting. Had 1550 ML stool yesterday, 400ml NG tube. Afebrile. VSS General. Awake and alert, No acute distress. NG tube in place Lungs are clear to auscultation S1-S2 regular rate and rhythm Abdomen. Surgical sites clean, dry and intact. Small amount of drainage in TADEO, serosanguineous. Abdomen is soft and nontender, nondistended. Ileostomy bag with brown drainage, stoma is pink. Extremities well-perfused, no edema. TADEO drain 120 mL WBC 4.7, hemoglobin 12.1, platelets 209. Assessment/plan POD 4 right colectomy for ischemic right colon, and ileostomy. Patient is reviewed and examined as per Dr. Olson this morning. Trial of clamping NG tube to see if the patient will tolerate. Had 1550 out in ileostomy yesterday. IV Zosyn. IVF 100cc/hr Continue to encourage ambulation and incentive spirometer. She remains on Lovenox for DVT prophylaxis. Continue ostomy teaching with nursing and planning for supplies for discharge. Continue to monitor. VS,Fishbone, I+O VS, Fishbone, I+O Laboratory Tests 04/17/20 05:50 Vital Signs Date Time Temp Pulse Resp B/P (MAP) Pulse Ox O2 Delivery O2 Flow Rate FiO2 04/17/20 06:00 98.6 65 18 121/75 (90) 98 Room Air 04/16/20 10:27 2.0 I&O- Last 24 Hours up to 6 AM 04/17/20 06:00 Intake Total 0 ml Output Total 0 ml Balance -0 ml Elizabeth Schneider Apr 17, 2020 13:29
[2020-04-17 14:47] VITALS: BP 121/77
[2020-04-17 22:00] VITALS: BP 122/77
[2020-04-18] MEDS: PERCOCET 5MG/325MG TAB PO PRN ×4 (01:27→22:37)
[2020-04-18] MEDS: KCL 20MEQ IN D5/0.45NS 1000ML 1,000 ML IV SCH ×2 (05:15→12:17)
[2020-04-18] MEDS: PIPERACILLIN/TAZOBACTAM SOD 3.375 GM in D5W MINI-BAG PLUS 50 ML IV SCH ×4 (05:15→22:34)
[2020-04-18 06:00] VITALS: BP 125/78
[2020-04-18 07:10] LABS: BASO # 0.1 10^3/uL (0.0-0.2); BASO % 0.9 % (0.0-1.0); EOS # 0.2 10^3/uL (0.0-0.5); EOS % 3.3 % (0.0-3.0); HEMATOCRIT 35.1 % (36.0-47.0); HEMOGLOBIN 11.7 g/dl (12.0-15.5); LYMPH # 1.6 10^3/uL (1.5-5.0); LYMPH % 24.2 % (24.0-44.0); MEAN CORPUSCULAR HEMOGLOBIN 30.9 pg (27.0-33.0); MEAN CORPUSCULAR HGB CONC 33.3 g/dl (32.0-36.5); MEAN CORPUSCULAR VOLUME 92.6 fl (80.0-96.0); MONO # 0.8 10^3/uL (0.0-0.8); MONO % 12.5 % (2.0-8.0); NEUTROPHILS # 3.7 10^3/uL (1.5-8.5); NEUTROPHILS % 57.4 % (36.0-66.0); PLATELET COUNT, AUTOMATED 211 10^3/uL (150-450); RED BLOOD COUNT 3.79 10^6/uL (4.00-5.40); WHITE BLOOD COUNT 6.4 10^3/uL (4.0-10.0)
[2020-04-18 07:35] LABS: ALBUMIN 2.3 GM/DL (3.2-5.2); ALT/SGPT 20 U/L (12-78); BILIRUBIN,TOTAL 0.3 MG/DL (0.2-1.0); BLOOD UREA NITROGEN 17 MG/DL (7-18); CALCIUM LEVEL 8.3 MG/DL (8.8-10.2); CARBON DIOXIDE LEVEL 27 MEQ/L (21-32); CHLORIDE LEVEL 106 MEQ/L (98-107); CREATININE FOR GFR 0.87 MG/DL (0.55-1.30); GLOMERULAR FILTRATION RATE > 60.0 (>45); GLUCOSE, FASTING 104 MG/DL (70-100); POTASSIUM SERUM 3.9 MEQ/L (3.5-5.1); SODIUM LEVEL 139 MEQ/L (136-145); TOTAL PROTEIN 5.5 GM/DL (6.4-8.2)
[2020-04-18 08:30] VITALS: BP 122/80
[2020-04-18] MEDS: ENOXAPARIN 40MG/0.4ML SYRINGE (J1650 PER 10MG) SC SCH (09:00)
[2020-04-18] MEDS: PANTOPRAZOLE 40MG VIAL (C9113 PER 1) IV SCH (10:21)
--- NOTE | 2020-04-18 12:09 | IPNPDOC ---
Text Note Date of Service The patient was seen on 04/18/20. NOTE General Surgery Dr Olson. The patient is a 64-year-old female POD 5 right colectomy for ischemic right colon, and ileostomy as per Dr. Olson. The patient states she is feeling better, denies abdominal pain. Tolerating NG tube clamping and small amounts of ice chips. Denies nausea or vomiting. Had 1000 ML stool yesterday, 200ml NG tube. Afebrile. VSS General. Awake and alert, No acute distress. NG tube in place Lungs are clear to auscultation S1-S2 regular rate and rhythm Abdomen. Surgical sites clean, dry and intact. Small amount of drainage in TADEO, serosanguineous. Abdomen is soft and nontender, nondistended. Ileostomy bag with brown liquid drainage, stoma is pink. Extremities well-perfused, no edema. TADEO drain 40 mL WBC 6.4, hemoglobin 11.7, platelets 211. Assessment/plan POD 5 right colectomy for ischemic right colon, and ileostomy. Patient is reviewed and examined as per Dr. Olson this morning. Plan to discontinue NG tube today and begin clear liquids. Discontinue TADEO drain. Had 1000 out in ileostomy yesterday. IV Zosyn. IVF 100cc/hr Continue to encourage ambulation and incentive spirometer. She remains on Lovenox for DVT prophylaxis. Continue ostomy teaching with nursing and planning for supplies for discharge. Continue to monitor. VS,Fishbone, I+O VS, Fishbone, I+O Laboratory Tests 04/18/20 06:32 04/18/20 06:33 Vital Signs Date Time Temp Pulse Resp B/P (MAP) Pulse Ox O2 Delivery O2 Flow Rate FiO2 04/18/20 10:32 18 Room Air 04/18/20 08:30 97.3 72 122/80 (94) 95 04/16/20 10:27 2.0 I&O- Last 24 Hours up to 6 AM 04/18/20 05:59 Intake Total 3497 ml Output Total 1265 ml Balance 2232 ml Elizabeth Schneider Apr 18, 2020 12:09
[2020-04-18 14:00] VITALS: BP 123/78
[2020-04-18 20:00] VITALS: BP 122/78
[2020-04-19] MEDS: KCL 20MEQ IN D5/0.45NS 1000ML 1,000 ML IV SCH (00:57)
[2020-04-19] MEDS: PIPERACILLIN/TAZOBACTAM SOD 3.375 GM in D5W MINI-BAG PLUS 50 ML IV SCH ×3 (04:57→17:08)
[2020-04-19 06:33] VITALS: BP 122/77
[2020-04-19 06:34] LABS: BASO # 0.1 10^3/uL (0.0-0.2); BASO % 1.2 % (0.0-1.0); EOS # 0.2 10^3/uL (0.0-0.5); EOS % 3.1 % (0.0-3.0); HEMATOCRIT 34.4 % (36.0-47.0); HEMOGLOBIN 11.6 g/dl (12.0-15.5); LYMPH # 1.3 10^3/uL (1.5-5.0); LYMPH % 19.6 % (24.0-44.0); MEAN CORPUSCULAR HEMOGLOBIN 30.9 pg (27.0-33.0); MEAN CORPUSCULAR HGB CONC 33.7 g/dl (32.0-36.5); MEAN CORPUSCULAR VOLUME 91.5 fl (80.0-96.0); MONO # 0.8 10^3/uL (0.0-0.8); MONO % 11.6 % (2.0-8.0); NEUTROPHILS # 4.1 10^3/uL (1.5-8.5); NEUTROPHILS % 61.1 % (36.0-66.0); PLATELET COUNT, AUTOMATED 213 10^3/uL (150-450); RED BLOOD COUNT 3.76 10^6/uL (4.00-5.40); WHITE BLOOD COUNT 6.7 10^3/uL (4.0-10.0)
[2020-04-19 06:58] LABS: ALBUMIN 2.3 GM/DL (3.2-5.2); ALT/SGPT 24 U/L (12-78); BILIRUBIN,TOTAL 0.3 MG/DL (0.2-1.0); BLOOD UREA NITROGEN 8 MG/DL (7-18); CALCIUM LEVEL 8.2 MG/DL (8.8-10.2); CARBON DIOXIDE LEVEL 27 MEQ/L (21-32); CHLORIDE LEVEL 107 MEQ/L (98-107); CREATININE FOR GFR 0.74 MG/DL (0.55-1.30); GLOMERULAR FILTRATION RATE > 60.0 (>45); GLUCOSE, FASTING 103 MG/DL (70-100); POTASSIUM SERUM 4.1 MEQ/L (3.5-5.1); SODIUM LEVEL 139 MEQ/L (136-145); TOTAL PROTEIN 5.4 GM/DL (6.4-8.2)
[2020-04-19] MEDS: PANTOPRAZOLE 40MG TAB (PROTONIX) PO SCH (08:54)
[2020-04-19] MEDS: ENOXAPARIN 40MG/0.4ML SYRINGE (J1650 PER 10MG) SC SCH (08:56)
[2020-04-19] MEDS: PERCOCET 5MG/325MG TAB PO PRN ×2 (09:00→17:12)
[2020-04-19 14:00] VITALS: BP 127/79
[2020-04-19 20:30] VITALS: BP 129/82
[2020-04-20 05:54] VITALS: BP 131/82
[2020-04-20] MEDS: ENOXAPARIN 40MG/0.4ML SYRINGE (J1650 PER 10MG) SC SCH (08:06)
[2020-04-20] MEDS: PANTOPRAZOLE 40MG TAB (PROTONIX) PO SCH (08:06)
[2020-04-20] MEDS: PERCOCET 5MG/325MG TAB PO PRN ×3 (08:07→21:42)
[2020-04-20] MEDS: LOMOTIL 2.5MG/0.025MG TABLET PO SCH ×2 (09:42→21:41)
--- NOTE | 2020-04-20 10:00 | IPN ---
PROGRESS NOTE DATE: 04/20/2020 SUBJECTIVE: Quita seems to be making some good progress. Her ostomy is putting out a significant amount of liquid at this time and it is actually pretty watery. She overall seems to be making some progress from an activity standpoint, up moving around a lot more without any other complaints. She is having some minimal discomfort with activity but otherwise that seems to be also improving quickly over time here. She no longer has IV fluids on board and otherwise has not been restarted on her stool softeners for obvious reasons. IMPRESSION/PLAN: Patient is making some good progress. Will continue with supportive care at this point, ostomy teaching and hopefully will be able to get her home early next week.
[2020-04-20 14:00] VITALS: BP 133/79
[2020-04-20 20:33] VITALS: BP 130/79
[2020-04-21 05:59] VITALS: BP 120/80
[2020-04-21 06:49] LABS: HEMATOCRIT 42.2 % (36.0-47.0); HEMOGLOBIN 13.4 g/dl (12.0-15.5); MEAN CORPUSCULAR HEMOGLOBIN 30.8 pg (27.0-33.0); MEAN CORPUSCULAR HGB CONC 31.8 g/dl (32.0-36.5); PLATELET COUNT, AUTOMATED 279 10^3/uL (150-450); RED BLOOD COUNT 4.35 10^6/uL (4.00-5.40); WHITE BLOOD COUNT 12.4 10^3/uL (4.0-10.0)
[2020-04-21] MEDS: LOMOTIL 2.5MG/0.025MG TABLET PO SCH ×2 (08:18→21:34)
[2020-04-21] MEDS: ENOXAPARIN 40MG/0.4ML SYRINGE (J1650 PER 10MG) SC SCH (08:18)
[2020-04-21] MEDS: PANTOPRAZOLE 40MG TAB (PROTONIX) PO SCH (08:18)
[2020-04-21] MEDS: PERCOCET 5MG/325MG TAB PO PRN ×3 (08:18→21:35)
--- NOTE | 2020-04-21 13:24 | IPN ---
PROGRESS NOTE DATE: 04/21/2020 SUBJECTIVE: Patient states she has been doing quite well, taking care of her ostomy without complaints. No complaints of drainage and overall feels well. However, her white count did bump a little bit today to 12.4 and she did have a very low grade fever of 99, but otherwise, seems to be making some good progress. She does have a significant amount of fluid out of her ostomy. She states this is better than it was last night and is starting to firm up a little bit since we started her on her Lomotil. Her abdomen is otherwise soft, non-distended, nontender. Incisions are clean, dry, without erythema, drainage or discharge. IMPRESSION/PLAN: Patient seems to be making some good progress at this time. I do feel that we will need a followup CBC tomorrow. We will continue with encouraging her with ostomy education and if her white count is down and she is doing well with ostomy education, I anticipate she will probably be discharged sometime tomorrow. Otherwise, we will continue her on a regular diet for now and encourage her to increase her activity.
[2020-04-21 14:00] VITALS: BP 131/80
[2020-04-21 22:00] VITALS: BP 120/84
[2020-04-22 06:00] VITALS: BP 134/78
[2020-04-22] MEDS: ENOXAPARIN 40MG/0.4ML SYRINGE (J1650 PER 10MG) SC SCH (09:00)
[2020-04-22] MEDS: LOMOTIL 2.5MG/0.025MG TABLET PO SCH (09:07)
[2020-04-22] MEDS: PANTOPRAZOLE 40MG TAB (PROTONIX) PO SCH (09:07)
[2020-04-22 09:48] LABS: BASO # 0.1 10^3/uL (0.0-0.2); BASO % 0.6 % (0.0-1.0); EOS # 0.2 10^3/uL (0.0-0.5); EOS % 2.1 % (0.0-3.0); HEMATOCRIT 40.5 % (36.0-47.0); HEMOGLOBIN 13.5 g/dl (12.0-15.5); LYMPH # 1.1 10^3/uL (1.5-5.0); LYMPH % 9.5 % (24.0-44.0); MEAN CORPUSCULAR HEMOGLOBIN 30.4 pg (27.0-33.0); MEAN CORPUSCULAR HGB CONC 33.3 g/dl (32.0-36.5); MEAN CORPUSCULAR VOLUME 91.2 fl (80.0-96.0); MONO # 0.5 10^3/uL (0.0-0.8); MONO % 4.6 % (2.0-8.0); NEUTROPHILS % 81.7 % (36.0-66.0); PLATELET COUNT, AUTOMATED 329 10^3/uL (150-450); RED BLOOD COUNT 4.44 10^6/uL (4.00-5.40); WHITE BLOOD COUNT 11.1 10^3/uL (4.0-10.0)
[2020-04-22] MEDS: PERCOCET 5MG/325MG TAB PO PRN (10:01)
[2020-04-22 10:05] LABS: BLOOD UREA NITROGEN 12 MG/DL (7-18); CALCIUM LEVEL 8.9 MG/DL (8.8-10.2); CARBON DIOXIDE LEVEL 26 MEQ/L (21-32); CHLORIDE LEVEL 105 MEQ/L (98-107); CREATININE FOR GFR 0.67 MG/DL (0.55-1.30); GLOMERULAR FILTRATION RATE > 60.0 (>45); GLUCOSE, FASTING 123 MG/DL (70-100); POTASSIUM SERUM 4.3 MEQ/L (3.5-5.1); SODIUM LEVEL 137 MEQ/L (136-145)
[2020-04-22] MEDS ORDERED: METR-265 PO (11:13)
[2020-04-22] MEDS ORDERED: DIPH2.5T15 PO (11:13)
[2020-04-22] MEDS ORDERED: PERCOCET PO (11:13)
[2020-04-22] MEDS ORDERED: AUGM875T28 PO (11:13)
--- NOTE | 2020-04-22 11:16 | DS.PDOC ---
Discharge Summary General Date of Admission Apr 12, 2020 at 16:00 Date of Discharge 04/22/2020 Attending Physician: KEISHA MCCLELLAND MD Discharge Summary PROCEDURES PERFORMED DURING STAY: Right hemicolectomy with ileostomy. ADMITTING DIAGNOSES: 1. Ischemic right colon 2. Obstipation. DISCHARGE DIAGNOSES: 1. Distended, mildly ischemic right colon status post right colectomy with ileostomy 2. Obstipation, unclear etiology. COMPLICATIONS/CHIEF COMPLAINT: Ischemic Right Colon. HISTORY OF PRESENT ILLNESS: . Patient is a 64-year-old female with long-standing history of constipation who for the past week has not been able to have any bowel movements or have any flatus with increasing abdominal distention. She reports no bowel movement since about 4 days ago. She initially thought she was constipated so she's been taking stool softeners without any relief of the discomfort. She has increasing distention. She complains of right lower quadrant and right flank discomfort as well as nausea and couple episodes of vomiting. She is able to tolerate a small amount of liquids but nothing more than that. She denies any associated fevers or chills. She denies any prior episodes of similar symptoms. No prior colonoscopies. She denies any personal or family history for GI malignancy, colorectal malignancy, inflammatory bowel disease. She denies any sick contacts. With increasing abdominal distention she continues to be uncomfortable and that she went to the emergency room. HOSPITAL COURSE: She was brought emergently to the operating room. Initially we started with a diagnostic laparoscopy but we ended up doing an open surgery, right colectomy, end ileostomy. During the case she required a small amount of Senthil-Synephrine which was able to be weaned off towards the end. She was hemodynamically stable, mildly tachycardic at the end of the procedure. Urine output is low during the first night. Nasogastric tube was kept in place and this was kept in low intermittent wall suction. She was brought to the medical surgical floor. Pain was controlled with intermittent doses of morphine, regular doses of Toradol. Patient did well on the first night, was hemodynamically stable still with low urine output. IV fluid was kept at 200 mLs/hr. she gradually increased her urine output. She seemed to be making headway with only a small amount of nasogastric tube drainage so we discontinue the NG tube at postop day 3. We discontinue the Alves catheter at postop day 2. She was ambulating to her room at postop day 2 and to the hallways by postoperative day 3. In the evening of postop day 4 she threw up and the nasogastric tube was placed back. Her ileostomy was functioning but still not a good active output as it just seems to be decompressing the distended small bowel with not much air but more this brownish fluid material that she is decompressing from her small bowel. We kept the nasogastric tube for another couple of days. By the that time her ileostomy output has improved. In the first few days also she was intermittently passing flatus through the rectum and even had one soft to liquid bowel movements through her rectum. She continues to do well. She worked for the nurses to get familiar with her ileostomy. She was started on clear liquids. Postop day #5 and slowly advanced to solid foods. Postop day #7. She's been afebrile throughout her stay. They are through her stay her ileostomy output increased to a point that she was draining more than a liter a day. She was placed on Lomotil 1 tablet twice a day to decrease the output to be manageable. The ileostomy appliance was working with a good seal and we did not have any problem with leakage from the ileostomy appliance. She completed a seven-day course of Zosyn. She had some mild leukocytosis today prior to her discharge but on repeat this has started to come down. I discharge her with another seven-day course of Augmentin and metronidazole. On day of discharge she is ambulating independently. She is tolerating regular food. Ileostomy output still is on the high side but manageable. She is able to keep up with her fluid intake patient has been taught ileostomy care. Visiting nurses were arranged to help her with ileostomy and incision/wound care following her discharge. DISCHARGE MEDICATIONS: Please see below. ALLERGIES: Please see below. PHYSICAL EXAMINATION ON DISCHARGE: VITAL SIGNS: Please see below. GENERAL: Comfortable in appearance HEENT: Mild pale palpebral conjunctiva, mucosa and lips are moist NECK: Supple, no jugular venous distention CARDIOVASCULAR EXAMINATION: Regular heart rate and rhythm without murmurs RESPIRATORY EXAMINATION: Or breath sounds auscultation bilaterally without wheezing ABDOMINAL EXAMINATION: Mildly rounded, mildly obese, minimally distended abdomen. She has a midline incision with shayy intact. No active drainage. There is some mild faint bruising around the umbilicus. Mildly tender around the incision. Ileostomy right lower quadrant area is working with a good seal on the appliance. EXTREMITIES: No significant extremity edema SKIN: Warm and dry NEUROLOGICAL EXAMINATION: Awake alert and oriented LABORATORY DATA: Please see below. IMAGING: CT abdomen and pelvis PROGNOSIS: Good ACTIVITY: Light activity for another 2 weeks. DIET: As tolerated DISCHARGE PLAN: Patient is discharged home. She still has her shayy. She will see me later on this week for possible removal of shayy she will follow-up in the clinic. We plan to perform an interval colonoscopy when she is ready for reversal of the ileostomy DISPOSITION: . DISCHARGE INSTRUCTIONS: 1. As above 2. Follow-up with me on for removal of shayy. ITEMS TO FOLLOWUP ON ON OUTPATIENT: 1. Pathology did not reveal etiology of her obstipation, skin:. DISCHARGE CONDITION: Stable. TIME SPENT ON DISCHARGE: Greater than 45 minutes. Vital Signs/I&Os Vital Signs Date Time Temp Pulse Resp B/P (MAP) Pulse Ox O2 Delivery O2 Flow Rate FiO2 04/22/20 10:31 17 04/22/20 06:00 97.8 87 134/78 (96) 96 Room Air 04/16/20 10:27 2.0 I&O- Last 24 Hours up to 6 AM 04/22/20 05:59 Intake Total 2120 ml Output Total 850 ml Balance 1270 ml Laboratory Data Labs 24H Laboratory Tests 2 04/22/20 09:16: Immature Granulocyte % (Auto) 1.5, Neutrophils (%) (Auto) 81.7H, Lymphocytes (%) (Auto) 9.5L, Monocytes (%) (Auto) 4.6, Eosinophils (%) (Auto) 2.1, Basophils (%) (Auto) 0.6, Neutrophils # (Auto) 9.0H, Lymphocytes # (Auto) 1.1L, Monocytes # (Auto) 0.5, Eosinophils # (Auto) 0.2, Basophils # (Auto) 0.1, Nucleated Red Blood Cells % (auto) 0.0, Anion Gap 6L, Glomerular Filtration Rate > 60.0, Calcium Level 8.9 CBC/BMP Laboratory Tests 04/22/20 09:16 Discharge Medications Scheduled Amoxicillin/Potassium Clav (Augmentin 875-125 Tablet) 1 Each Tablet, 1 TAB PO BID Diphenoxylate HCl/Atropine (Diphenoxylate-Atrop 2.5-0.025) 1 Each Tablet, 1 EA PO BID Metronidazole (Metronidazole) 500 Mg Tablet, 500 MG PO TID Scheduled PRN Oxycodone/Acetaminophen (Oxycodone-Acetaminophen 5-325) 1 Each Tablet, 1 TAB PO TIDP PRN for MILD/MODERATE PAIN (PS 1-7) Allergies Coded Allergies: ENVIROMENTAL (Verified Allergy, Unknown, 04/12/20) KEISHA MCCLELLAND MD Apr 22, 2020 11:16
== END 2020-04-22 14:00 | disposition home or self-care (01) | DRG 331 ==
LOC: M ED 12:32 → M ED INP 16:00 → M MS5PR 22:50
PROVIDERS: ADMIT Surgery; ATTEND Surgery
PROC: 0D1B0Z4 Bypass Ileum to Cutaneous, Open Approach (ICD-10-PCS; 2020-04-12)
PROC: 0DTF0ZZ Resection of Right Large Intestine, Open Approach (ICD-10-PCS; principal; 2020-04-12 16:30)
DX: K55.059 Acute (reversible) ischemia of intestine, part and extent unspecified (principal); K63.89 Other specified diseases of intestine; K55.019 Acute (reversible) ischemia of small intestine, extent unspecified; Z53.31 Laparoscopic surgical procedure converted to open procedure

== ENCOUNTER → 2020-05-23 | Outpatient (REF) | payer MEDICARE, MEDICAID ==
[~2020-05-23] MED LIST: AUGM875T28 PO; COLA100C5 PO; DIPH2.5T15 PO; METR-265 PO; PERCOCET PO
[2020-05-23 14:20] LABS: BASO # 0.1 10^3/uL (0.0-0.2); BASO % 0.9 % (0.0-1.0); EOS # 0.2 10^3/uL (0.0-0.5); EOS % 2.7 % (0.0-3.0); HEMATOCRIT 43.2 % (36.0-47.0); HEMOGLOBIN 14.1 g/dl (12.0-15.5); LYMPH # 1.5 10^3/uL (1.5-5.0); LYMPH % 27.5 % (24.0-44.0); MEAN CORPUSCULAR HGB CONC 32.6 g/dl (32.0-36.5); MEAN CORPUSCULAR VOLUME 94.9 fl (80.0-96.0); MONO # 0.5 10^3/uL (0.0-0.8); MONO % 9.3 % (2.0-8.0); NEUTROPHILS # 3.3 10^3/uL (1.5-8.5); NEUTROPHILS % 59.2 % (36.0-66.0); PLATELET COUNT, AUTOMATED 214 10^3/uL (150-450); RED BLOOD COUNT 4.55 10^6/uL (4.00-5.40); WHITE BLOOD COUNT 5.5 10^3/uL (4.0-10.0)
[2020-05-23 16:02] LABS: ALBUMIN 3.9 GM/DL (3.2-5.2); ALT/SGPT 20 U/L (12-78); BILIRUBIN,TOTAL 0.4 MG/DL (0.2-1.0); BLOOD UREA NITROGEN 8 MG/DL (7-18); CALCIUM LEVEL 9.8 MG/DL (8.8-10.2); CARBON DIOXIDE LEVEL 26 MEQ/L (21-32); CHLORIDE LEVEL 108 MEQ/L (98-107); CHOLESTEROL LEVEL 221 MG/DL (<200); CHOLESTEROL RISK RATIO 3.453 (<5); CREATININE FOR GFR 0.72 MG/DL (0.55-1.30); FREE T4 0.92 NG/DL (0.76-1.46); GLOMERULAR FILTRATION RATE > 60.0 (>45); GLUCOSE, FASTING 102 MG/DL (70-100); HDL CHOLESTEROL 64 MG/DL (>40); LDL CHOLESTEROL 124 MG/DL (<100); NON-HDL-C 157 MG/DL; POTASSIUM SERUM 4.4 MEQ/L (3.5-5.1); SODIUM LEVEL 140 MEQ/L (136-145); TOTAL PROTEIN 7.5 GM/DL (6.4-8.2); TRIGLYCERIDES LEVEL 166 MG/DL (<150)
[2020-05-23 16:39] LABS: HEPATITIS C VIRUS ABY INDEX < 0.0 INDEX (<0.8)
[2020-05-23 16:40] LABS: HIV 1&2 SCREEN CENTAUR NEGATIVE (NEGATIVE)
[2020-05-23 18:59] LABS: HEMOGLOBIN A1c 5.1 %
== END ==
LOC: M SFHCCLAY 08:46
PROVIDERS: ATTEND Nurse Practitioner Family
DX: K59.09 Other constipation (principal); E66.9 Obesity, unspecified; Z13.220 Encounter for screening for lipoid disorders; Z11.4 Encounter for screening for human immunodeficiency virus [HIV]; Z11.59 Encounter for screening for other viral diseases; Z13.1 Encounter for screening for diabetes mellitus; Z79.899 Other long term (current) drug therapy
CPT/HCPCS: 80053; 80061; 83036; 84439; 84443; 85025; 86255; 86803; 87389; G0463

== ENCOUNTER → 2020-07-19 | Outpatient (CLI) | payer MEDICARE, MEDICAID | LOC: M LABSMTC 09:56 | PROVIDERS: ATTEND Anesthesiology | DX: Z01.812 Encounter for preprocedural laboratory examination (principal); Z20.822 Contact with and (suspected) exposure to COVID-19 ==

== ENCOUNTER → 2020-07-31 | Outpatient (REF) | payer MEDICARE, OTHER | LOC: M SFHCCLAY 08:59 | PROVIDERS: ATTEND Nurse Practitioner Family | DX: Z01.419 Encounter for gynecological examination (general) (routine) without abnormal findings (principal); R87.610 Atypical squamous cells of undetermined significance on cytologic smear of cervix (ASC-US); Z23 Encounter for immunization | CPT/HCPCS: 87624; 90472; 90715; 90732; G0009; G0101; G0123; G0463 ==

== ENCOUNTER → 2020-08-07 | Outpatient (CLI) | payer MEDICARE, OTHER ==
[~2020-08-07] MED LIST changes: +LIQUID POLIBAR PLUS 105% w/v 1900ML BTL As Ordered ONE
--- NOTE | 2020-08-07 16:50 | REP ---
INDICATION: NELLA NEHEMIAH OF SIGMOID COLON. COMPARISON: None. TECHNIQUE: Performed under the direct supervision of Dr. Turpin. The images were reviewed with Dr. Turpin. The bin tripper operator film shows no organomegaly or pathological mass is. The intestinal gas pattern is nonspecific. There are surgical sutures noted over the right abdomen. There is a right ileostomy. Liquid barium was administered into the colon in a retrograde flow. 0.7 minutes of fluoroscopy time was utilized for this procedure. FINDINGS: In the rectosigmoid colon there is an abrupt transition with nodularity and tumor shelf morphology. No barium was able to be advanced beyond this point. Some of the barium was drained back into the bag to release the pressure and then readministered. However, no barium was able to be passed beyond this point. 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 IMPRESSION: In the rectosigmoid colon there is an abrupt transition with nodularity and tumor shelf morphology. No barium was able to be advanced beyond this point. Some of the barium was drained back into the bag to release the pressure and then readministered. However, no barium was able to be passed beyond this point. 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 <Electronically signed by Gurmeet Pinzon > 08/07/20 1637 <Electronically signed by Junior Turpin > 08/07/20 1647
== END ==
LOC: M RAD 14:04
PROVIDERS: ATTEND Surgery
DX: D12.5 Benign neoplasm of sigmoid colon (principal)

== ENCOUNTER → 2020-09-16 | Outpatient (CLI) | payer MEDICARE, OTHER ==
[~2020-09-16] MED LIST changes: +GASTROGRAFIN SOLUTION 30ML (Q9963) As Ordered ONE; +ISOVUE-370 76% 100ML VIAL As Ordered ONE; -LIQUID POLIBAR PLUS 105% w/v 1900ML BTL As Ordered ONE
== END ==
LOC: M RAD 15:16
PROVIDERS: ATTEND Surgery
DX: C18.7 Malignant neoplasm of sigmoid colon (principal); K57.30 Diverticulosis of large intestine without perforation or abscess without bleeding; Z93.3 Colostomy status
CPT/HCPCS: 71260; 74178; Q9963; Q9967

== ENCOUNTER → 2021-08-19 | Outpatient (REF) | payer MEDICARE, OTHER, MEDICAID ==
[~2021-08-19] MED LIST changes: -GASTROGRAFIN SOLUTION 30ML (Q9963) As Ordered ONE; -ISOVUE-370 76% 100ML VIAL As Ordered ONE
== END ==
LOC: M SFHCCLAY 10:05
PROVIDERS: ATTEND Nurse Practitioner Family
DX: Z01.419 Encounter for gynecological examination (general) (routine) without abnormal findings (principal)

== ENCOUNTER → 2022-05-12 | Outpatient (CLI) | payer MEDICAID, MEDICARE ==
[~2022-05-12] MED LIST changes: +GASTROGRAFIN SOLUTION 30ML As Ordered ONE; +ISOVUE-370 76% 100ML VIAL As Ordered ONE
== END ==
LOC: M RAD 11:09
PROVIDERS: ATTEND Internal Medicine Medical Oncology
DX: Z85.038 Personal history of other malignant neoplasm of large intestine (principal); Z85.048 Personal history of other malignant neoplasm of rectum, rectosigmoid junction, and anus; K43.9 Ventral hernia without obstruction or gangrene; Z90.49 Acquired absence of other specified parts of digestive tract; Z98.0 Intestinal bypass and anastomosis status; J98.4 Other disorders of lung; K76.0 Fatty (change of) liver, not elsewhere classified
CPT/HCPCS: 71260; 74177; Q9963; Q9967

== ENCOUNTER → 2022-08-18 | Outpatient (REF) | payer MEDICARE, OTHER, MEDICAID ==
[~2022-08-18] MED LIST changes: -GASTROGRAFIN SOLUTION 30ML As Ordered ONE; -ISOVUE-370 76% 100ML VIAL As Ordered ONE
[2022-08-18 12:05] LABS: BASO # 0.1 10^3/uL (0.0-0.2); EOS # 0.2 10^3/uL (0.0-0.5); EOS % 3.2 % (0.0-3.0); HEMATOCRIT 46.9 % (36.0-47.0); HEMOGLOBIN 15.6 g/dl (12.0-15.5); LYMPH # 1.7 10^3/uL (1.5-5.0); LYMPH % 26.7 % (24.0-44.0); MEAN CORPUSCULAR HEMOGLOBIN 30.6 pg (27.0-33.0); MEAN CORPUSCULAR HGB CONC 33.3 g/dl (32.0-36.5); MEAN CORPUSCULAR VOLUME 92.1 fl (80.0-96.0); MONO # 0.5 10^3/uL (0.0-0.8); NEUTROPHILS # 3.8 10^3/uL (1.5-8.5); NEUTROPHILS % 60.6 % (36.0-66.0); PLATELET COUNT, AUTOMATED 182 10^3/uL (150-450); RED BLOOD COUNT 5.09 10^6/uL (4.00-5.40); WHITE BLOOD COUNT 6.3 10^3/uL (4.0-10.0)
[2022-08-18 12:25] LABS: FREE T4 1.04 NG/DL (0.89-1.76); THYROID STIMULATING HORMONE 1.032 uIU/ML (0.55-4.78)
[2022-08-18 12:26] LABS: ALBUMIN 3.9 G/DL (3.2-5.2); ALKALINE PHOSPHATASE 80 U/L (46-116); ALT/SGPT 16 U/L (7.0-40); AST/SGOT < 8 U/L (<34); BILIRUBIN,TOTAL 0.7 MG/DL (0.3-1.2); BLOOD UREA NITROGEN 8 MG/DL (9-23); CALCIUM LEVEL 9.6 MG/DL (8.3-10.6); CARBON DIOXIDE LEVEL 30 MMOL/L (20-31); CHLORIDE LEVEL 104 MMOL/L (98-107); CHOLESTEROL LEVEL 192 MG/DL (<200); CHOLESTEROL RISK RATIO 3.53 (<5); CREATININE FOR GFR 0.72 MG/DL (0.55-1.30); GLOMERULAR FILTRATION RATE > 60.0 (>45); GLUCOSE, FASTING 91 MG/DL (74-106); HDL CHOLESTEROL 54.3 MG/DL (>40); LDL CHOLESTEROL 98.9 MG/DL (<100); NON-HDL-C 137.7 MG/DL; POTASSIUM SERUM 4.9 MMOL/L (3.5-5.1); SODIUM LEVEL 141 MMOL/L (136-145); TOTAL PROTEIN 7.2 G/DL (5.7-8.2); TRIGLYCERIDES LEVEL 194 MG/DL (<150)
== END ==
LOC: M SFHCCLAY 08:59
PROVIDERS: ATTEND Nurse Practitioner Family
DX: Z01.419 Encounter for gynecological examination (general) (routine) without abnormal findings (principal); N95.1 Menopausal and female climacteric states; C18.9 Malignant neoplasm of colon, unspecified; Z13.220 Encounter for screening for lipoid disorders; Z13.1 Encounter for screening for diabetes mellitus

== ENCOUNTER → 2022-09-02 | Outpatient (CLI) | payer MEDICAID, MEDICARE | LOC: M RAD 14:12 | PROVIDERS: ATTEND Nurse Practitioner Family | DX: N95.0 Postmenopausal bleeding (principal); D25.9 Leiomyoma of uterus, unspecified; N85.2 Hypertrophy of uterus ==

== ENCOUNTER → 2022-10-06 | Outpatient (CLI) | payer MEDICAID, MEDICARE ==
[2022-10-07 08:11] LABS: HERPES ZOSTER, VARICELLA IgG 1456 index (Immune >165); RUBEOLA IgG ANTIBODY >300.0 AU/mL (Immune >16.4)
== END ==
LOC: M PLALAB 08:14
PROVIDERS: ATTEND Nurse Practitioner Family
DX: Z01.84 Encounter for antibody response examination (principal)

== ENCOUNTER → 2022-10-07 | Outpatient (REF) | payer MEDICARE, MEDICAID | LOC: M SFHCWAGY 13:06 | PROVIDERS: ATTEND Nurse Practitioner Family | DX: D26.1 Other benign neoplasm of corpus uteri (principal) ==

== ENCOUNTER → 2022-11-17 | Outpatient (CLI) | payer MEDICARE, OTHER ==
[~2022-11-17] MED LIST changes: +GASTROGRAFIN SOLUTION 30ML As Ordered ONE; +ISOVUE-370 76% 100ML VIAL As Ordered ONE
== END ==
LOC: M RAD 11:17
PROVIDERS: ATTEND Nurse Practitioner
DX: C20 Malignant neoplasm of rectum (principal); K43.9 Ventral hernia without obstruction or gangrene; Q79.59 Other congenital malformations of abdominal wall
CPT/HCPCS: 71260; 74177; Q9963; Q9967

== ENCOUNTER → 2022-11-18 | Outpatient (CLI) | payer MEDICARE, OTHER ==
[~2022-11-18] MED LIST changes: -GASTROGRAFIN SOLUTION 30ML As Ordered ONE; -ISOVUE-370 76% 100ML VIAL As Ordered ONE
== END ==
LOC: M WHC 14:22
PROVIDERS: ATTEND Nurse Practitioner Family
DX: Z12.31 Encounter for screening mammogram for malignant neoplasm of breast (principal)

== ENCOUNTER 2022-12-08 11:22 | Day surgery (SDC) | payer MEDICARE, OTHER ==
[~2022-12-08] VITALS: Ht 167.6 cm; Wt 103.3 kg
[~2022-12-08 11:22] MED LIST changes: +LR 1,000 ML IV SCH
[2022-12-08 12:05] LABS: HEMATOCRIT 46.3 % (36.0-47.0); HEMOGLOBIN 15.5 g/dl (12.0-15.5); MEAN CORPUSCULAR HGB CONC 33.5 g/dl (32.0-36.5); MEAN CORPUSCULAR VOLUME 92.6 fl (80.0-96.0); PLATELET COUNT, AUTOMATED 177 10^3/uL (150-450); WHITE BLOOD COUNT 5.9 10^3/uL (4.0-10.0)
[2022-12-08] MEDS ORDERED: fentaNYL 100 MCG/2 ML INJECTION As Ordered ONE (12:28)
[2022-12-08] MEDS ORDERED: MIDAZOLAM INJ 2MG/2ML VIAL As Ordered ONE (12:28)
[2022-12-08] MEDS ORDERED: KETOROLAC 60MG 2ML VIAL As Ordered ONE (12:29)
[2022-12-08] MEDS ORDERED: ACETAMINOPHEN 1000MG 100ML IV BAG As Ordered ONE (12:29)
[2022-12-08] MEDS ORDERED: LIDOCAINE 2% 100MG/5ML SDV (FOR ANES.) As Ordered ONE (12:29)
[2022-12-08] MEDS ORDERED: propofoL 200 MG/20 ML VIAL As Ordered ONE (12:29)
[2022-12-08] MEDS ORDERED: ONDANSETRON 4MG 2ML VIAL As Ordered ONE (12:30)
[2022-12-08] MEDS ORDERED: fentaNYL 100 MCG/2 ML INJECTION IV PRN (13:45)
[2022-12-08] MEDS ORDERED: HYDROMORPHONE HCL 0.5 MG/ 0.5 ML SYRINGE IV PRN (13:45)
[2022-12-08] MEDS ORDERED: ONDANSETRON 4MG 2ML VIAL IV PRN (13:45)
[2022-12-08] MEDS ORDERED: oxyCODONE 5MG TAB PO PRN (13:45)
[2022-12-08 14:22] VITALS: BP 169/89; TEMP 97.4; O2SAT 97
== END 2022-12-08 14:44 | disposition home or self-care (01) ==
LOC: M SDC 11:22
PROVIDERS: ATTEND Specialist
DX: N95.0 Postmenopausal bleeding (principal); N84.0 Polyp of corpus uteri; D25.0 Submucous leiomyoma of uterus; Z90.49 Acquired absence of other specified parts of digestive tract
CPT/HCPCS: 36415; 58558; 85027; 88305; J0131; J1100; J1885; J2250; J2405; J3010

== ENCOUNTER → 2023-06-21 | Outpatient (REF) | payer MEDICARE, MEDICAID ==
[~2023-06-21] MED LIST changes: +DIPH1TAB81 PO; -DIPH2.5T15 PO; -LR 1,000 ML IV SCH
[2023-06-21 18:27] LABS: BASO # 0.1 10^3/uL (0.0-0.2); BASO % 0.9 % (0.0-1.0); EOS # 0.1 10^3/uL (0.0-0.5); HEMATOCRIT 44.3 % (36.0-47.0); HEMOGLOBIN 15.2 g/dl (12.0-15.5); LYMPH # 1.9 10^3/uL (1.5-5.0); LYMPH % 26.4 % (24.0-44.0); MEAN CORPUSCULAR HEMOGLOBIN 31.5 pg (27.0-33.0); MEAN CORPUSCULAR HGB CONC 34.3 g/dl (32.0-36.5); MEAN CORPUSCULAR VOLUME 91.7 fl (80.0-96.0); MONO # 0.7 10^3/uL (0.0-0.8); MONO % 9.4 % (2.0-8.0); NEUTROPHILS # 4.3 10^3/uL (1.5-8.5); NEUTROPHILS % 60.9 % (36.0-66.0); PLATELET COUNT, AUTOMATED 189 10^3/uL (150-450); RED BLOOD COUNT 4.83 10^6/uL (4.00-5.40); WHITE BLOOD COUNT 7.1 10^3/uL (4.0-10.0)
[2023-06-21 18:46] LABS: HEMOGLOBIN A1c 4.9 % (4.0-6.0)
[2023-06-21 18:53] LABS: ALBUMIN 3.9 G/DL (3.2-5.2); ALKALINE PHOSPHATASE 79 U/L (46-116); ALT/SGPT 30 U/L (7.0-40); AST/SGOT 24 U/L (<34); BILIRUBIN,TOTAL 0.5 MG/DL (0.3-1.2); BLOOD UREA NITROGEN 11 MG/DL (9-23); CALCIUM LEVEL 9.9 MG/DL (8.3-10.6); CARBON DIOXIDE LEVEL 33 MMOL/L (20-31); CHLORIDE LEVEL 103 MMOL/L (98-107); CHOLESTEROL LEVEL 217 MG/DL (<200); CHOLESTEROL RISK RATIO 4.26 (<5); CREATININE FOR GFR 0.72 MG/DL (0.55-1.30); FREE T4 1.23 NG/DL (0.89-1.76); GLOMERULAR FILTRATION RATE > 60.0 (>45); GLUCOSE, FASTING 94 MG/DL (74-106); HDL CHOLESTEROL 50.9 MG/DL (>40); LDL CHOLESTEROL 107.9 MG/DL (<100); NON-HDL-C 166.1 MG/DL; POTASSIUM SERUM 4.2 MMOL/L (3.5-5.1); SODIUM LEVEL 141 MMOL/L (136-145); TOTAL PROTEIN 7.1 G/DL (5.7-8.2); TRIGLYCERIDES LEVEL 291 MG/DL (<150)
[2023-06-21 18:54] LABS: THYROID STIMULATING HORMONE 1.396 uIU/ML (0.55-4.78)
== END ==
LOC: M SFHCCLAY 14:18
PROVIDERS: ATTEND Nurse Practitioner Family
DX: Z00.00 Encounter for general adult medical examination without abnormal findings (principal); C18.9 Malignant neoplasm of colon, unspecified; K62.89 Other specified diseases of anus and rectum; N95.1 Menopausal and female climacteric states; N95.0 Postmenopausal bleeding; R92.2 Inconclusive mammogram; Z12.31 Encounter for screening mammogram for malignant neoplasm of breast; Z86.39 Personal history of other endocrine, nutritional and metabolic disease; Z13.6 Encounter for screening for cardiovascular disorders

== ENCOUNTER → 2023-06-30 | Outpatient (CLI) | payer MEDICAID, MEDICARE, OTHER | LOC: M WHC 09:52 | PROVIDERS: ATTEND Nurse Practitioner Family | DX: N95.1 Menopausal and female climacteric states (principal); M85.88 Other specified disorders of bone density and structure, other site ==

== ENCOUNTER → 2023-11-18 | Outpatient (REF) | payer MEDICARE, OTHER ==
[2023-11-18 18:51] LABS: BLOOD UREA NITROGEN 8 MG/DL (9-23); CALCIUM LEVEL 9.6 MG/DL (8.3-10.6); CARBON DIOXIDE LEVEL 32 MMOL/L (20-31); CHLORIDE LEVEL 103 MMOL/L (98-107); CREATININE FOR GFR 0.63 MG/DL (0.55-1.30); GLOMERULAR FILTRATION RATE > 60.0 (>45); GLUCOSE, FASTING 92 MG/DL (74-106); POTASSIUM SERUM 4.2 MMOL/L (3.5-5.1); SODIUM LEVEL 139 MMOL/L (136-145)
== END ==
LOC: M LABDRAWC 17:22
PROVIDERS: ATTEND Surgery
DX: Z85.038 Personal history of other malignant neoplasm of large intestine (principal)

== ENCOUNTER → 2023-12-03 | Outpatient (CLI) | payer MEDICARE, OTHER | LOC: M WHC 14:33 | PROVIDERS: ATTEND Nurse Practitioner Family | DX: Z12.31 Encounter for screening mammogram for malignant neoplasm of breast (principal) ==

== ENCOUNTER → 2023-12-10 | Outpatient (CLI) | payer MEDICARE, OTHER ==
[~2023-12-10] MED LIST changes: +GASTROGRAFIN SOLUTION 30ML As Ordered ONE; +ISOVUE-370 76% 100ML VIAL As Ordered ONE
== END ==
LOC: M RAD 07:39
PROVIDERS: ATTEND Surgery
DX: Z85.038 Personal history of other malignant neoplasm of large intestine (principal); J98.11 Atelectasis; K44.9 Diaphragmatic hernia without obstruction or gangrene; K76.0 Fatty (change of) liver, not elsewhere classified; Z90.49 Acquired absence of other specified parts of digestive tract; K46.9 Unspecified abdominal hernia without obstruction or gangrene; Q79.59 Other congenital malformations of abdominal wall; R93.3 Abnormal findings on diagnostic imaging of other parts of digestive tract
CPT/HCPCS: 74177; Q9963; Q9967

== ENCOUNTER → 2024-06-08 | Outpatient (REF) | payer MEDICARE, MEDICAID ==
[~2024-06-08] MED LIST changes: -GASTROGRAFIN SOLUTION 30ML As Ordered ONE; -ISOVUE-370 76% 100ML VIAL As Ordered ONE
== END ==
LOC: M SFHCCLAY 09:04
PROVIDERS: ATTEND Nurse Practitioner Family
DX: Z53.21 Procedure and treatment not carried out due to patient leaving prior to being seen by health care provider (principal); N95.1 Menopausal and female climacteric states; N95.0 Postmenopausal bleeding; R92.2 Inconclusive mammogram; C18.9 Malignant neoplasm of colon, unspecified; K62.89 Other specified diseases of anus and rectum; Z13.1 Encounter for screening for diabetes mellitus

== ENCOUNTER → 2024-12-26 | Outpatient (REF) | payer MEDICARE, MEDICAID ==
[2024-12-26 14:47] LABS: BASO # 0.0 10^3/uL (0.0-0.2); BASO % 0.5 % (0.0-1.0); EOS # 0.1 10^3/uL (0.0-0.5); EOS % 1.7 % (0.0-3.0); LYMPH # 0.3 10^3/uL (1.5-5.0); LYMPH % 5.5 % (24.0-44.0); MONO # 0.6 10^3/uL (0.0-0.8); MONO % 9.8 % (2.0-8.0); NEUTROPHILS # 4.8 10^3/uL (1.5-8.5); NEUTROPHILS % 82.2 % (36.0-66.0); PLATELET COUNT, AUTOMATED 166 10^3/uL (150-450)
[2024-12-26 15:00] LABS: ESTIMATED AVERAGE GLUCOSE 103.0 MG/DL (60-110)
[2024-12-26 15:16] LABS: ALT/SGPT < 9 U/L (7.0-40); AST/SGOT 15 U/L (<34); CALCIUM LEVEL 8.9 MG/DL (8.3-10.6); CARBON DIOXIDE LEVEL 29 MMOL/L (20-31); CHLORIDE LEVEL 101 MMOL/L (98-107); CHOLESTEROL LEVEL 142 MG/DL (<200); CHOLESTEROL RISK RATIO 3.12 (<5); CREATININE FOR GFR 0.58 MG/DL (0.55-1.30); GLOMERULAR FILTRATION RATE > 90.0 (>39); LDL CHOLESTEROL 70.4 MG/DL (<100); NON-HDL-C 96.6 MG/DL; POTASSIUM SERUM 4.3 MMOL/L (3.5-5.1); SODIUM LEVEL 140 MMOL/L (136-145); TRIGLYCERIDES LEVEL 131 MG/DL (<150)
[2024-12-26 15:25] LABS: FREE T4 0.90 NG/DL (0.89-1.76)
== END ==
LOC: M SFHCCLAY 07:20
PROVIDERS: ATTEND Nurse Practitioner Family
DX: C18.9 Malignant neoplasm of colon, unspecified (principal); K62.89 Other specified diseases of anus and rectum; N95.1 Menopausal and female climacteric states; N95.0 Postmenopausal bleeding; R92.2 Inconclusive mammogram; Z13.1 Encounter for screening for diabetes mellitus; Z79.899 Other long term (current) drug therapy

== ENCOUNTER → 2025-01-01 | Outpatient (CLI) | payer MEDICAID, MEDICARE | LOC: M WHC 09:40 | PROVIDERS: ATTEND Nurse Practitioner Family | DX: Z12.31 Encounter for screening mammogram for malignant neoplasm of breast (principal) ==